=== PATIENT | female | born 1950 | race Caucasian/White ===

== ENCOUNTER 2017-03-16 11:41 | Inpatient (IN) | payer MEDICARE ==
[2017-03-16 12:41] LABS: #Eosinphils 0.1 thou/uL (0.0-0.7); #Lymphocytes 1.5 thou/uL (1.20-3.40); #Monocytes 0.4 thou/uL (0.11-0.59); #Neutrophils 6.5 thou/uL (1.40-6.50); %Basophils 0.2 % (0.0-1.0); %Eosinophils 0.7 % (0.0-10.0); %Lymphocytes 17.9 % (21.0-51.0); %Monocytes 4.7 % (0.0-10.0); Hematocrit 42.9 % (36.0-47.0); Mean Platelet Volume 7.2 fL (7.4-10.4); Red Blood Cell (RBC) Count 4.78 mill/uL (4.20-5.40); White Blood Cell (WBC) Count 8.4 thou/uL (4.8-10.8)
[2017-03-16 12:59] LABS: ALT (SGPT) 39 U/L (8-55); AST (SGOT) 64 U/L (5-34); Alkaline Phosphatase 89 U/L (40-150); Anion Gap 21 mmol/L (10-20); BUN (Urea Nitrogen) 64 mg/dL (9.8-20.1); Bilirubin, Total 1.1 mg/dL (0.2-1.2); Calc. Creatinine Clearance 0 mL/min (70-130); Carbon Dioxide 18 mmol/L (23-31); Chloride 94 mmol/L (98-107); Estimated GFR-MDRD 5; Globulin 4.8 g/dL (2.4-3.5); Protein, Total 9.6 g/dL (6.0-8.3)
[2017-03-16] MEDS ORDERED: Ondansetron HCl/PF 4 MG/2 ML Vial ONE (13:12)
[2017-03-16 13:25] LABS: Bilirubin Small (Negative); Blood, Urine Large (Negative); Glucose, Urine (Dipstick) Negative (Negative); Ketone, Urine Trace mg/dL (Negative); Nitrite Negative (Negative); Protein, Urine (Dipstick) 300 mg/dL (Neg-Trace); Urobilinogen 0.2 mg/dL (0.2-1.0)
[2017-03-16 13:30] LABS: Bacteria/HPF 4+ HPF (None Seen); Hyaline Casts/LPF 0-3 HYALINE CAST LPF (0-3 Hyaline)
[2017-03-16 13:50] LABS: Yeast-All Forms None Seen HPF (None Seen)
--- NOTE | 2017-03-16 16:40 | CT ---
CT ABDOMEN WITHOUT CONTRAST CT PELVIS WITHOUT CONTRAST: History: Abdominal pain. Comparison: None. Technique: An abdomen and pelvic CT are performed without contrast. Coronal reformatted images are steele bmitted for interpretation. FINDINGS: ABDOMEN CT: Lung bases are clear. Heart size is within normal limits. No significant paracardial fluid. The diste nding thoracic aorta demonstrates atherosclerosis. There is atherosclerosis at the origin of the nayla ac artery, superior mesenteric artery, and bilateral renal artery. Evaluation is limited. Symmetric a ttenuation of psoas muscles. No gastrohepatic, retrocrural or periportal lymphadenopathy. Gallbladder is unremarkable. Limited evaluation of the solid organs by lack of IV contrast. Diffuse hypodensity of the liver due t o hepatic steatosis. Remaining solid organs are grossly unremarkable. There is mild lobulation involv ing both kidneys, nonspecific. There are punctate nonobstructing 1-2 mm calculus in the lower pole of the left kidney. Bilateral hydronephrosis or perinephric fat stranding. Bilateral ureters are normal caliber. No hydroureter, perirenal fat stranding or ureterolithiasis. No gastrohepatic, retrocrual or periportal lymphadenopathy. No mesenteric mass, lymphadenopathy, free air or free fluid. There is oral contrast opacification of the small bowel loops. There is a segment of small bowel, jus t proximal to the ostomy site which is slightly thickened and dilated. Findings are nonspecific and m ay be secondary to the presence of a dilated ileostomy. The entire colon appears to be surgically rem maria eugenia. With regard to the small bowel loops, no evidence of bowel obstruction. PELVIC CT: The uterus and adnexa structures are unremarkable. No pelvic mass, lymphadenopathy, free air or free fluid. Urinary bladder is unremarkable. There are no lytic or blastic lesions. There is a predominately fat containing lesion in the anterior aspect of the left lower extremity com patible with a lipoma measuring 3.8 x 5.9 cm. Better interrogation with MRI is recommended. IMPRESSION: 1. Diverting ileostomy in the right lower quadrant. The entire colon appears to be surgically absent. No evidence of bowel obstruction. 2. Nonobstructing calculus in the left kidney. Bilaterally, no evidence of obstructive uropathy. 3. Hepatic steatosis. POS: [facility]
[2017-03-16] MEDS ORDERED: Diabetic Tussin 200 MG/10 ML UDCUP PO PRN (16:56)
[2017-03-16] MEDS ORDERED: Artificial Tears 18 DROP/0.9 ML EA EYE PRN (16:56)
[2017-03-16] MEDS ORDERED: Sodium Chloride 0.65% Nasal 44 ML BOT EA NARE PRN (16:56)
[2017-03-16] MEDS ORDERED: Ondansetron ODT 4 MG TAB PO PRN (16:56)
[2017-03-16] MEDS ORDERED: Ondansetron HCl/PF 4 MG/2 ML Vial IVP PRN (16:56)
[2017-03-16] MEDS ORDERED: Milk Of Magnesia 30 ML UDCUP PO PRN (16:56)
[2017-03-16] MEDS ORDERED: hydrALAZINE 20 MG/ML VIAL SLOW IVP PRN (16:56)
[2017-03-16] MEDS ORDERED: Chloraseptic Spray 180 ml Bottle PO PRN (16:56)
[2017-03-16] MEDS ORDERED: Acetaminophen 325 MG TAB PO PRN (16:56)
[2017-03-16] MEDS ORDERED: Morphine 4 MG/ML VIAL SLOW IVP PRN (16:56)
[2017-03-16] MEDS ORDERED: Senokot 8.6 MG TAB PO PRN (16:56)
[2017-03-16] MEDS ORDERED: Labetalol HCl 100 MG/20 ML VIAL SLOW IVP PRN (16:56)
[2017-03-16] MEDS ORDERED: Loratadine 10 MG TAB PO PRN (16:56)
[2017-03-16] MEDS ORDERED: HYDROcodone/Acetaminophen 5/325 mg Tablet PO PRN (16:56)
[2017-03-16] MEDS ORDERED: Eucerin (Mineral Oil/Petrolatum,White) 30 gm Jar TOP PRN (16:56)
[2017-03-16] MEDS ORDERED: Mag-Al 1200 mg/1200 mg/30 ML UDCUP PO PRN (16:56)
[2017-03-16] MEDS ORDERED: Loperamide HCl 2 MG CAP PO PRN (16:56)
[2017-03-16] MEDS ORDERED: Diphenoxylate HCl/Atropine Tablet PO PRN (16:56)
--- NOTE | 2017-03-16 17:48 | HP ---
PRIMARY CARE PHYSICIAN: Rhea Pérez MD PRIMARY YARN WASHER: Dr. Bridgett Mo. REASON FOR ADMISSION: Acute kidney failure. HISTORY OF PRESENT ILLNESS: A 67-year-old female, who has history of inflammatory bowel disease, req uired colectomy and she has ileostomy. The patient came to the emergency room from Dr. Mo's offic e. The patient has a 1 week history of abdominal pain, nausea, vomiting. The patient also noticed t hat her ostomy output was also reduced significantly. because she was not able to keep anything down . She initially thought that she might have a small-bowel obstruction, which she had in the past. S he was trying to rub her abdomen and after that she felt better only for 1 day and that is why she ig nored to come to emergency room, but again the next day, the patient started having nausea and vomiti ng and she was only able to eat crackers. She was also not drinking enough liquid. The patient was also having vague abdominal pain and that is why she made appointment with Dr. Bridgett Mo and who evaluated her and she sent her to the emergency room for evaluation. This patient reports that she had similar type of acute kidney failure in the past from high ileostom y output. She denies any fever. She denies any UTI symptoms, though urinalysis in the emergency dave m suggestive of UTI. In the emergency room, the patient is found with acute kidney failure with her BUN is 64 and creatinine 7.57. The patient also had urinalysis, which was suggestive of UTI. She di d not have any chest pain, palpitation, dizziness. She was feeling weak, fatigued, tired. She denie s any hematochezia. She denies any melena. She denies any hematemesis. REVIEW OF SYSTEMS: The following complete review of systems was negative, unless otherwise mentioned in the HPI or below: CONSTITUTIONAL: Weight loss or gain, ability to conduct usual activities. SKIN: Rash, itching. EYES: Double vision, pain. ENT/MOUTH: Nose bleeding, neck stiffness, pain, tenderness. CARDIOVASCULAR: Palpitations, dyspnea on exertion, orthopnea. RESPIRATORY: Shortness of breath, wheezing, cough, hemoptysis, fever or night sweats. GASTROINTESTINAL: Poor appetite, abdominal pain, heartburn, nausea, vomiting, constipation, or diarr hea. GENITOURINARY: Urgency, frequency, dysuria, nocturia. MUSCULOSKELETAL: Pain, swelling. NEUROLOGIC/PSYCHIATRIC: Anxiety, depression. ALLERGY/IMMUNOLOGIC: Skin rash, bleeding tendency. Please see my HPI for pertinent positives and negatives. All other review of system reviewed and neg ative except as mentioned in the HPI. PAST MEDICAL HISTORY: Nephrolithiasis, inflammatory bowel disease, and history of pancreatitis. PAST SURGICAL HISTORY: Colectomy, ileostomy placement, left elbow surgery, lithotripsy for kidney st one, surgery on esophagus, tonsillectomy, and tubal ligation. PAST PSYCHIATRIC HISTORY: Anxiety and depression. SOCIAL HISTORY: The patient is living at home with family. She is a former smoker. She quit Zentila more than 10 years ago. She denies any alcohol or other illicit drug abuse. FAMILY HISTORY: No strong family history of premature coronary artery disease, stroke or cancer. ALLERGIES: SULFA DRUGS. CURRENT HOME MEDICATIONS: Calcium with vitamin D 1 tablet twice daily, potassium chloride one tablet daily, magnesium oxide 400 mg twice daily, losartan 25 mg p.o. daily, glipizide 5 mg p.o. daily, Zol oft 100 mg p.o. daily, omeprazole 20 mg p.o. daily, and metoprolol 50 mg twice daily. EMERGENCY ROOM COURSE: The patient is receiving IV fluid. The patient is given Rocephin 1 gram and Zofran 8 mg. PHYSICAL EXAMINATION: VITAL SIGNS: On arrival, blood pressure 141/67, pulse 77, respiratory rate 20, temperature 97.7, sat uration 95% on room air, and weight 93.8 kilograms. GENERAL: The patient is currently alert, awake, appears weak and dry. HEENT: Head: Normocephalic, atraumatic. Eyes: Pupils round, reactive to light. Extraocular muscl es intact. ENT: Oropharynx within normal limits. Dry mucous membranes, no oral lesions, no pharyngeal erythema , no exudate. NECK: Supple, no JVD, no thyromegaly, no carotid bruit. LUNGS: Clear to auscultation without any rhonchi or rales. CARDIAC: S1 and S2 regular. No murmur, no gallop, no rub. ABDOMEN: The patient has ileostomy in place, which is draining greenish liquidy material. The patie nt does have diffuse vague abdominal soreness, but no peritoneal sign, no guarding, no rigidity. No distention. Bowel sounds present. BACK: Unremarkable, no CVA tenderness. EXTREMITIES: Upper extremity passive movement of all joints are normal. Lower extremities: No abdirashid a. Good peripheral pulsation. SKIN: No skin rash. HEMATOLOGICAL: No lymphadenopathy. PSYCHIATRIC: Normal affect. SIGNIFICANT LABS: EKG based on my review reveals normal sinus rhythm within normal limits. CT of th e abdomen and pelvis done and reviewed by me, official report is pending. CBC: WBC 8.4, hemoglobin 14.9, platelet 310. BMP: Sodium 128, potassium 4.8, chloride 94, carbon d ioxide 18, anion gap 21, BUN 64, creatinine 7.57, glucose 148, calcium 10.0. LFT: AST 64, ALT 39, a lkaline phosphatase 89, albumin 4.8. CRP 4.84, lipase 123. Urinalysis suggestive of UTI. IMPRESSION 1. Acute kidney failure. The patient's creatinine is significantly elevated from BUN 64 and creatin ine 7.57. The patient is clinically appeared dehydrated. Her kidney failure is related with prerena l etiology secondary to poor p.o. intake as well as high ileostomy output. At this point, the patien t also has associated anion gap metabolic acidosis. The patient will require admission to the hospit al. She will be given IV fluid with NS with 1 ampule of sodium bicarbonate at 150 mL per hour. We w ill monitor renal function. We will consult Nephrology. We will check urine sodium, urine creatinin e, urine osmolality, and plasma osmolality. We will avoid nephrotoxic agents. We will monitor input output chart. 2. Hyponatremia and hypochloremia, likely due to volume depletion. The patient will be given IV flu id with NS and we will repeat BMP tomorrow. We are also going hyponatremia workup. 3. Anion gap metabolic acidosis due to renal failure. We are giving her sodium bicarbonate 650 mg p .o. b.i.d. along with 1 ampule of sodium bicarbonate, 1 with IV fluid and we will consult Nephrology for further treatment. Plan will defer to Nephrology as well. 3. Acute urinary tract infection. The patient will be given IV fluid as well as antibiotic therapy will be given with Rocephin and Levaquin 250 mg daily. We will follow up on urine culture. We will send urine culture as well. 4. Inflammatory bowel disease, we will consult sample coordinator. The patient has high ileostomy o utput. We will defer further treatment of inflammatory bowel disease to sample coordinator. 5. Diabetes type 2. We will continue with insulin as per sliding scale per protocol. Diabetic diet will be given as tolerated. At this point, we are starting with clear liquid diet and if patient to lerates this well, then we will advance diet to fiber restricted diet. 6. Hypertension. Currently, blood pressure is reasonably well controlled. We will avoid losartan, given renal failure. We will continue with metoprolol 50 mg twice daily. 7. Gastroesophageal reflux disease. We will continue Protonix 40 mg IV daily. 8. Anxiety and depression. We will continue Zoloft 100 mg p.o. daily. 9. Fluid, electrolytes, nutrition. The patient will have magnesium, phosphorus checked and her meta bolic acidosis will be contacted and will replace electrolytes as needed basis. 10. Deep venous thrombosis prophylaxis, heparin 5000 units subcu twice daily. 11. Gastrointestinal prophylaxis, Protonix 40 mg IV daily. 12. Code status: The patient is FULL CODE. The patient's daughter is surrogate decision maker. 13. Disposition plan based on clinical course. We are expecting the patient's stay in the hospital more than 2 midnights. Plan of care discussed with the patient and family member at bedside in the e mergency room.
[2017-03-16 21:29] VITALS: BMI 32.8
[2017-03-16] MEDS: Sodium Bicarbonate 50 MEQ in Sodium Chloride 0.9% 1,000 ML IV SCH (21:47)
[2017-03-16] MEDS: Sodium Bicarbonate Tab 325 MG TAB PO SCH (21:48)
[2017-03-16] MEDS: Heparin 5,000 UNITS/ML VIAL SC SCH (21:48)
[2017-03-16 22:24] LABS: Osmolality, Urine 349 mOsm/kg (300-900)
[2017-03-17 01:09] LABS: Sodium, Urine Less than 20 mmol/L (Not Available)
[2017-03-17 05:30] LABS: #Basophils 0.1 thou/uL (0.0-0.2); #Eosinphils 0.1 thou/uL (0.0-0.7); #Lymphocytes 1.2 thou/uL (1.20-3.40); #Monocytes 0.4 thou/uL (0.11-0.59); #Neutrophils 4.1 thou/uL (1.40-6.50); %Basophils 0.9 % (0.0-1.0); %Lymphocytes 21.1 % (21.0-51.0); %Monocytes 7.3 % (0.0-10.0); Hematocrit 37.7 % (36.0-47.0); Mean Platelet Volume 7.7 fL (7.4-10.4); Red Blood Cell (RBC) Count 4.06 mill/uL (4.20-5.40); White Blood Cell (WBC) Count 5.8 thou/uL (4.8-10.8)
[2017-03-17 06:12] LABS: ALT (SGPT) 32 U/L (8-55); AST (SGOT) 53 U/L (5-34); Alkaline Phosphatase 70 U/L (40-150); Anion Gap 18 mmol/L (10-20); BUN (Urea Nitrogen) 59 mg/dL (9.8-20.1); Bilirubin, Total 0.8 mg/dL (0.2-1.2); Calc. Creatinine Clearance 16 mL/min (70-130); Calcium 8.5 mg/dL (7.8-10.44); Carbon Dioxide 13 mmol/L (23-31); Chloride 101 mmol/L (98-107); Estimated GFR-MDRD 9; Globulin 3.9 g/dL (2.4-3.5); Lipase 189 U/L (8-78); Magnesium 1.7 mg/dL (1.6-2.6); Phosphorus 5.7 mg/dL (2.3-4.7); Protein, Total 7.7 g/dL (6.0-8.3)
[2017-03-17] MEDS: Sodium Bicarbonate 50 MEQ in Sodium Chloride 0.9% 1,000 ML IV SCH ×3 (06:53→22:39)
[2017-03-17] MEDS ORDERED: FLU VACC TS2017-18 (>65YR) 0.5 ML SYRINGE IM ONE (09:00)
[2017-03-17] MEDS: Heparin 5,000 UNITS/ML VIAL SC SCH ×2 (09:00→20:17)
[2017-03-17] MEDS ORDERED: Meropenem 500 MG in Sodium Chloride 0.9% 100 ML IVPB SCH (09:00)
[2017-03-17] MEDS: Pantoprazole 40 MG VIAL IVP SCH (09:01)
[2017-03-17] MEDS: Saccharomyces boulardii 250 MG CAP PO SCH (09:01)
[2017-03-17] MEDS: Sodium Bicarbonate Tab 325 MG TAB PO SCH ×2 (09:01→20:17)
[2017-03-17] MEDS ORDERED: Sodium Bicarbonate 150 MEQ, Admixture Fee 1 EACH in Dextrose 5% in Water 1,000 ML IV SCH ×3 (09:15)
--- NOTE | 2017-03-17 09:16 | PDOC.PN ---
- Subjective Encounter Start Date: 03/17/17 Encounter Start Time: 07:40 -: old records requested/rev Patient seen and examined. No new complaints. No overnight events - Objective MAR Reviewed: Yes Vital Signs & Weight: Vital Signs (12 hours) Temp Pulse Resp BP Pulse Ox 03/17/17 07:41 97.6 F 70 16 119/57 L 95 03/17/17 04:00 98.5 F 75 18 122/57 L 96 03/17/17 03:40 94 L Weight Weight 209 lb 8 oz I&O: 03/16/17 03/17/17 03/18/17 06:59 06:59 06:59 Intake Total 1350 Output Total 300 Balance 1050 Result Diagrams: 03/17/17 05:10 03/17/17 05:10 Radiology Reviewed by me: Yes EKG Reviewed by me: Yes (nsr) Phys Exam - Physical Examination Constitutional: NAD HEENT: PERRLA, moist MMs, sclera anicteric Neck: no JVD, supple Respiratory: no wheezing, no rales, no rhonchi Cardiovascular: RRR, no significant murmur, no rub Gastrointestinal: soft, non-tender, no distention, positive bowel sounds Iliostomy+ Musculoskeletal: no edema, pulses present Neurological: non-focal, normal sensation Lymphatic: no nodes Psychiatric: normal affect, A&O x 3 Skin: no rash, normal turgor Dx/Plan (1) Metabolic acidosis Code(s): E87.2 - ACIDOSIS Status: Acute (2) Acute kidney failure Status: Acute (3) Hyponatremia Code(s): E87.1 - HYPO-OSMOLALITY AND HYPONATREMIA Status: Acute (4) UTI (urinary tract infection) Status: Acute (5) IBD (inflammatory bowel disease) Code(s): K52.9 - NONINFECTIVE GASTROENTERITIS AND COLITIS, UNSPECIFIED Status : Chronic (6) Obesity (BMI 30.0-34.9) Code(s): E66.9 - OBESITY, UNSPECIFIED Status: Chronic - Plan cont current plan of care, continue antibiotics * start bicarbonate drip for 1 liter * then resume current IVF order * medication reviewed as below * symptomatic treatment * monitor renal function * stool negative for infection * continue today empiric antibiotics. * Give KCL 40 meq po one time * repeat labs tomorrow * discussed with nephrology Review of Systems - Review of Systems ENT: negative: Ear Pain, Ear Discharge, Nose Pain, Nose Discharge, Nose Congestion, Mouth Pain, Mouth Swelling, Throat Pain, Throat Swelling, Other Respiratory: negative: Cough, Dry, Shortness of Breath, Hemoptysis, SOB with Excertion, Pleuritic Pain, Sputum, Wheezing Cardiovascular: negative: Chest Pain, Palpitations, Orthopnea, Paroxysmal Noc. Dyspnea, Edema, Light Headedness, Other Gastrointestinal: negative: Nausea, Vomiting, Abdominal Pain, Diarrhea, Constipation, Melena, Hematochezia, Other Genitourinary: negative: Dysuria, Frequency, Incontinence, Hematuria, Retention , Other Musculoskeletal: negative: Neck Pain, Shoulder Pain, Arm Pain, Back Pain, Hand Pain, Leg Pain, Foot Pain, Other Skin: negative: Rash, Lesions, Stef, Bruising, Other - Medications/Allergies Allergies/Adverse Reactions: Allergies Allergy/AdvReac Type Severity Reaction Status Date / Time Sulfa (Sulfonamide Allergy Verified 03/16/17 22:13 Antibiotics) Medications: Current Medications Acetaminophen (Tylenol) 650 mg PO Q4H PRN PRN Reason: Headache/Fever or Pain Hydrocodone Bitart/Acetaminophen ([place] 5/325) 1 tab PO Q4H PRN PRN Reason: Moderate Pain (4-6) Al Hydroxide/Mg Hydroxide (Maalox) 30 ml PO Q6H PRN PRN Reason: Heartburn or Indigestion Artificial Tears (Tears Naturale) 0 drop EA EYE PRN PRN PRN Reason: Dry Eyes Diphenoxylate HCl/Atropine (Lomotil) 1 tab PO Q6H PRN PRN Reason: Diarrhea/Loose Stools Guaifenesin (Robitussin Sf) 200 mg PO Q4H PRN PRN Reason: Cough Heparin Sodium (Porcine) (Heparin) 5,000 units SC BID REPLACED BY [facility] Last Admin: 03/17/17 09:00 Dose: 5,000 units Hydralazine HCl (Apresoline) 10 mg SLOW IVP Q4H PRN PRN Reason: Systolic BP > 180 Ceftriaxone Sodium 1 gm/ (Syringe) 10 mls @ 20 mls/hr IVPB 1600 NELIA Sodium Bicarbonate 50 meq/ (Sodium Chloride) 1,050 mls @ 150 mls/hr IV .Q7H REPLACED BY [facility] Last Admin: 03/17/17 06:53 Dose: 1,050 mls Levofloxacin 250 mg/ Device 50 mls @ 100 mls/hr IVPB 2200 REPLACED BY [facility] Last Admin: 03/16/17 21:49 Dose: 50 mls Labetalol HCl (Normodyne) 40 mg SLOW IVP Q4H PRN PRN Reason: Systolic BP > 180 Loperamide HCl (Imodium) 2 mg PO PRN PRN PRN Reason: Diarrhea/Loose Stools Loratadine (Claritin) 10 mg PO DAILYPRN PRN PRN Reason: Sinus Symptoms Magnesium Hydroxide (Milk Of Magnesium) 30 ml PO DAILYPRN PRN PRN Reason: Constipation Mineral Oil/White Petrolatum (Eucerin Cream) 0 gm TOP BIDPRN PRN PRN Reason: Dry Skin Morphine Sulfate (Morphine) 2 mg SLOW IVP Q4H PRN PRN Reason: Pain Ondansetron HCl (Zofran Odt) 4 mg PO Q6H PRN PRN Reason: Nausea/Vomiting Ondansetron HCl (Zofran) 4 mg IVP Q6H PRN PRN Reason: Nausea/Vomiting Last Admin: 03/17/17 03:05 Dose: 4 mg Pantoprazole Sodium (Protonix) 40 mg IVP DAILY REPLACED BY [facility] Last Admin: 03/17/17 09:01 Dose: 40 mg Phenol (Chloraseptic [place] 180 Ml Bot) 0 ml PO PRN PRN PRN Reason: Sore Throat Saccharomyces Boulardii (Florastor) 250 mg PO DAILY REPLACED BY [facility] Last Admin: 03/17/17 09:01 Dose: 250 mg Senna (Senokot) 2 tab PO HSPRN PRN PRN Reason: Constipation Sodium Bicarbonate (Bicarbonate, Sodium) 650 mg PO BID REPLACED BY [facility] Last Admin: 03/17/17 09:01 Dose: 650 mg Sodium Chloride ([place] Nasal [place] 0.65%) 0 ml EA NARE QIDPRN PRN PRN Reason: Nasal Congestion Sodium Chloride (Flush - Normal Saline) 10 ml IVF Q12HR REPLACED BY [facility] Last Admin: 03/16/17 21:49 Dose: 10 ml Sodium Chloride (Flush - Normal Saline) 10 ml IVF PRN PRN PRN Reason: Saline Flush
[2017-03-17] MEDS ORDERED: Potassium Chloride 20 MEQ TAB PO SCH (09:30)
[2017-03-17] MEDS: cefTRIAXone\\ROCEPHIN 1 GM in Syringe 10 ML IVPB SCH (16:50)
--- NOTE | 2017-03-17 17:54 | CON ---
DATE OF CONSULTATION: 03/17/2017 HISTORY OF PRESENT ILLNESS: Patient is a 67-year-old female with a history of Crohn's who was referred to the emergency room from Dr. Mo's office because of vomiting. She was last seen by Nette Moran in Dr. Mo's office. At that time, she was having nausea, vomiting, and dry heaves. She had decreased ileostomy output over the last 72 hours. Normally, she changes her ostomy bag 3-4 times a day and uses a Lomotil occasionally for increased ostomy output. She has diffuse abdominal p ain and cramping. She has had a total colectomy for what was thought was ulcerative colitis and a J- pouch. Subsequently, she was diagnosed with Crohn disease and her J-pouch was converted into an ileo stomy. PAST MEDICAL HISTORY: Includes chronic renal disease, diabetes mellitus, hyperlipidemia, depression, hypertension. PAST SURGICAL HISTORY: Includes a total colectomy, kidney stones. ALLERGIES: SULFA. SOCIAL HISTORY: She rarely drinks, does not smoke. FAMILY HISTORY: Significant for colon cancer in both her mother and father. MEDICATIONS: Include Glucotrol 5 mg p.o. daily, sertraline 100 mg p.o. at bedtime, omeprazole 20 mg p.o. daily, metoprolol 25 mg p.o. b.i.d., magnesium oxide 400 mg p.o. b.i.d., losartan 25 mg p.o. jonnie ly, calcium citrate with vitamin D 600 mg p.o. daily, potassium 99 mg p.o. daily. REVIEW OF SYSTEMS: CONSTITUTIONAL: No fever or chills, no weight loss. EYES: No blurred vision or double vision. ENT: No sore throat or earaches. CARDIOVASCULAR: No chest pain or palpitation. PULMONARY: No shortness of breath, cough or wheezing. GASTROINTESTINAL: See above. GENITOURINARY: No hematuria or dysuria. MUSCULOSKELETAL: No joint pain. SKIN: No rashes. NEUROLOGIC: No numbness or seizure activity. PHYSICAL EXAMINATION: VITAL SIGNS: Temperature 98.4, pulse 85, respiratory rate 15, blood pressure 142/80. HEENT: Unremarkable. NECK: Supple. CHEST: Clear. CARDIOVASCULAR: Regular rate and rhythm without murmurs or gallops. ABDOMEN: Soft, nontender, without organomegaly or masses. She has an ileostomy in the right lower q uadrant. Mucosa seems to be normal. RECTAL: Deferred. EXTREMITIES: Normal. LABORATORY: Shows a hemoglobin on admission of 14.9, has dropped to 12.6 with hydration. Chemistry panel on admission shows sodium 128, chloride 94, CO2 of 18, BUN 64, creatinine 7.57, glucose 148, T 64. C-reactive protein 484, total protein 96, lipase 123. Urinalysis showed 300 protein, large bl ood, small bilirubin, moderate leukocyte esterase, 7-10 RBCs, greater than 50 WBCs. Abdominal and pe lvic CT done without contrast showed diverting ileostomy in the right lower quadrant with an absent c olon. No bowel obstruction is noted. Nonobstructing left calculus in the kidney and fatty liver. ASSESSMENT: 1. Severe dehydration secondary to nausea and vomiting. 2. Decreased ostomy output -- this is probably on the basis of dehydration rather than an obstructio n. 3. Acute on chronic renal failure -- secondary to nausea, vomiting, and dehydration. 4. History of Crohn disease with a total colectomy, J-pouch and subsequent ileostomy. 5. Diabetes mellitus. 6. Urinary tract infection. 7. Hyponatremia. RECOMMENDATIONS: 1. Rehydration. 2. Resume diet. 3. Treat underlying urinary tract infection. 5. Correct electrolytes.
[2017-03-17] MEDS ORDERED: Acetaminophen 500 MG TAB PO PRN (22:24)
[2017-03-17] MEDS: diphenhydrAMINE 25 MG CAP PO PRN (22:48)
--- NOTE | 2017-03-18 00:21 | CON ---
DATE OF CONSULTATION: 03/17/2017 CONSULTING PHYSICIAN: Dr. Puga. REASON FOR CONSULTATION: Acute kidney injury. REASON FOR ADMISSION: Abnormal labs. HISTORY OF PRESENT ILLNESS: This is a 67-year-old female with history of inflammatory bowel disease, nephrolithiasis, and pancreatitis who came to the hospital with above complaints and patient was fou nd to have abnormal labs. The patient was found to have elevated creatinine and the patient was havi ng increased output. She does have history of previous acute kidney injuries like this. No fever or chills, no nausea or vomiting, increased ostomy output reported. No skin rash, no fever or chills reported. PAST MEDICAL HISTORY: Positive for nephrolithiasis, inflammatory bowel disease, pancreatitis. PAST SURGICAL HISTORY: Colectomy, ileostomy placement, left elbow surgery, lithotripsy, tonsillectom y, tubal ligation. HOME MEDICATIONS: Calcium, vitamin D, magnesium, losartan, glipizide, Zoloft, omeprazole, metoprolol . ALLERGIES: SULFA DRUGS. SOCIAL HISTORY: No smoking, alcohol, or illicit drug abuse, former smoker. FAMILY HISTORY: Negative for kidney disease. REVIEW OF SYSTEMS: The following complete review of systems was negative, unless otherwise mentioned in the HPI or below: Constitutional: Weight loss or gain, ability to conduct usual activities. Skin: Rash, itching. Eyes: Double vision, pain. ENT/Mouth: Nose bleeding, neck stiffness, pain, tenderness. Cardiovascular: Palpitations, dyspnea on exertion, orthopnea. Respiratory: Shortness of breath, wheezing, cough, hemoptysis, fever, or night sweats. Gastrointestinal: Poor appetite, abdominal pain, heartburn, nausea, vomiting, constipation, or diarr hea. Genitourinary: Urgency, frequency, dysuria, nocturia. Musculoskeletal: Pain, swelling. Neurologic/Psychiatric: Anxiety, depression. Allergy/Immunologic: Skin rash, bleeding tendency. PHYSICAL EXAMINATION: GENERAL: This is an obese female in no apparent distress. VITAL SIGNS: Temperature 98.8, pulse 81, respirations 17, blood pressure 113/58. HEENT: Atraumatic, normocephalic. Oral mucosa is moist. NECK: Supple, no masses. CARDIOVASCULAR: S1, S2 heard. Rate and rhythm regular. RESPIRATORY: Clear to auscultation. MUSCULOSKELETAL: No tenderness. DERMATOLOGIC: No skin rash. NEUROLOGIC: Alert and awake. PSYCHIATRIC: Mood and affect normal. LABORATORY AND X-RAY FINDINGS: Sodium is 128, potassium 3.8, BUN is 59, creatinine is 5.03. Creatin ine on admission was 7.5. ASSESSMENT AND PLAN: 1. Acute kidney injury most likely volume depletion. No acute indication for dialysis. Creatinine is getting better with hydration. 2. Hyponatremia. 3. Acidosis. Consider bicarbonate supplementation. 4. Azotemia. 5. Elevated liver enzymes. 6. Hypoalbuminemia. 7. Hypertension, stable. 8. Anemia. 9. Continue hydration, avoid nephrotoxins. We will follow. Thank you for the consultation.
[2017-03-18] MEDS: Sodium Bicarbonate 50 MEQ in Sodium Chloride 0.9% 1,000 ML IV SCH (04:40)
[2017-03-18 04:57] LABS: #Eosinphils 0.1 thou/uL (0.0-0.7); #Lymphocytes 1.1 thou/uL (1.20-3.40); #Monocytes 0.4 thou/uL (0.11-0.59); #Neutrophils 2.5 thou/uL (1.40-6.50); %Basophils 0.2 % (0.0-1.0); %Eosinophils 2.2 % (0.0-10.0); %Lymphocytes 26.9 % (21.0-51.0); %Monocytes 8.9 % (0.0-10.0); Hematocrit 30.7 % (36.0-47.0); Mean Platelet Volume 7.1 fL (7.4-10.4); Red Blood Cell (RBC) Count 3.39 mill/uL (4.20-5.40)
[2017-03-18 05:21] LABS: Anion Gap 12 mmol/L (10-20); BUN (Urea Nitrogen) 42 mg/dL (9.8-20.1); BUN/Creatinine Ratio 18.18; Calc. Creatinine Clearance 36 mL/min (70-130); Calcium 7.9 mg/dL (7.8-10.44); Carbon Dioxide 27 mmol/L (23-31); Chloride 100 mmol/L (98-107); Estimated GFR-MDRD 21; Phosphorus 3.1 mg/dL (2.3-4.7)
[2017-03-18] MEDS ORDERED: Potassium Chloride 20 MEQ TAB PO SCH (08:30)
[2017-03-18] MEDS: Saccharomyces boulardii 250 MG CAP PO SCH (08:50)
[2017-03-18] MEDS: Heparin 5,000 UNITS/ML VIAL SC SCH ×2 (08:50→20:22)
[2017-03-18] MEDS: Pantoprazole 40 MG VIAL IVP SCH (08:50)
[2017-03-18] MEDS: Sodium Bicarbonate Tab 325 MG TAB PO SCH ×2 (09:55→20:22)
[2017-03-18] MEDS: NS 0.9% w/ 20 MEQ KCL 1,000 ML/1,000 ML BAG IV SCH ×3 (09:56→19:00)
--- NOTE | 2017-03-18 09:57 | PDOC.PN ---
- Subjective Encounter Start Date: 03/18/17 Encounter Start Time: 08:00 pt is continue to improve, feels better, no complaints today, apatite is improving, has solid content in ilieostomy+ - Objective MAR Reviewed: Yes Vital Signs & Weight: Vital Signs (12 hours) Temp Pulse Resp BP Pulse Ox 03/18/17 08:47 97.8 F 82 18 133/61 93 L 03/18/17 04:00 97.3 F L 76 18 141/66 H 95 03/18/17 02:59 93 L Weight Weight 214 lb 9.6 oz I&O: 03/17/17 03/18/17 03/19/17 06:59 06:59 06:59 Intake Total 1350 5200 Output Total 300 3150 Balance 1050 0 Result Diagrams: 03/18/17 04:33 03/18/17 04:33 EKG Reviewed by me: Yes (nsr) Phys Exam - Physical Examination Constitutional: NAD HEENT: PERRLA, moist MMs, sclera anicteric Neck: no JVD, supple Respiratory: no wheezing, no rales, no rhonchi Cardiovascular: RRR, no significant murmur, no rub Gastrointestinal: soft, non-tender, no distention, positive bowel sounds Ileostomy+ Musculoskeletal: no edema, pulses present Neurological: non-focal, normal sensation, moves all 4 limbs Psychiatric: normal affect, A&O x 3 Skin: no rash, normal turgor Dx/Plan (1) Metabolic acidosis Code(s): E87.2 - ACIDOSIS Status: Acute (2) Acute kidney failure Status: Acute (3) Hyponatremia Code(s): E87.1 - HYPO-OSMOLALITY AND HYPONATREMIA Status: Acute (4) UTI (urinary tract infection) Status: Acute (5) IBD (inflammatory bowel disease) Code(s): K52.9 - NONINFECTIVE GASTROENTERITIS AND COLITIS, UNSPECIFIED Status : Chronic (6) Obesity (BMI 30.0-34.9) Code(s): E66.9 - OBESITY, UNSPECIFIED Status: Chronic - Plan cont current plan of care, continue antibiotics * now will DC bicarbonate drip * will change IVF with potassium * renal function is improving * will need one more day IVF * tomorrow will repeat labs * continue empiric IV antibiotics and tomorrow consider changing to po levaquin for UTI * medication reviewed as below * symptomatic treatment * ambulate as tolerated. Review of Systems - Review of Systems Constitutional: negative: Fever, Chills, Sweats, Weakness, Malaise, Other ENT: negative: Ear Pain, Ear Discharge, Nose Pain, Nose Discharge, Nose Congestion, Mouth Pain, Mouth Swelling, Throat Pain, Throat Swelling, Other Respiratory: negative: Cough, Dry, Shortness of Breath, Hemoptysis, SOB with Excertion, Pleuritic Pain, Sputum, Wheezing Cardiovascular: negative: Chest Pain, Palpitations, Orthopnea, Paroxysmal Noc. Dyspnea, Edema, Light Headedness, Other Gastrointestinal: negative: Nausea, Vomiting, Abdominal Pain, Diarrhea, Constipation, Melena, Hematochezia, Other Genitourinary: negative: Dysuria, Frequency, Incontinence, Hematuria, Retention , Other Musculoskeletal: negative: Neck Pain, Shoulder Pain, Arm Pain, Back Pain, Hand Pain, Leg Pain, Foot Pain, Other Skin: negative: Rash, Lesions, Stef, Bruising, Other - Medications/Allergies Allergies/Adverse Reactions: Allergies Allergy/AdvReac Type Severity Reaction Status Date / Time Sulfa (Sulfonamide Allergy Verified 03/16/17 22:13 Antibiotics) Medications: Current Medications Acetaminophen (Tylenol) 650 mg PO Q4H PRN PRN Reason: Headache/Fever or Pain Acetaminophen (Tylenol) 500 mg PO HSPRN PRN PRN Reason: Insomnia Last Admin: 03/17/17 22:48 Dose: 500 mg Hydrocodone Bitart/Acetaminophen ([place]rawley 5/325) 1 tab PO Q4H PRN PRN Reason: Moderate Pain (4-6) Al Hydroxide/Mg Hydroxide (Maalox) 30 ml PO Q6H PRN PRN Reason: Heartburn or Indigestion Artificial Tears (Tears Naturale) 0 drop EA EYE PRN PRN PRN Reason: Dry Eyes Diphenhydramine HCl (Benadryl) 25 mg PO HSPRN PRN PRN Reason: Insomnia Last Admin: 03/17/17 22:48 Dose: 25 mg Diphenoxylate HCl/Atropine (Lomotil) 1 tab PO Q6H PRN PRN Reason: Diarrhea/Loose Stools Guaifenesin (Robitussin Sf) 200 mg PO Q4H PRN PRN Reason: Cough Heparin Sodium (Porcine) (Heparin) 5,000 units SC BID [facility] Last Admin: 12/02/17 08:50 Dose: 5,000 units Hydralazine HCl (Apresoline) 10 mg SLOW IVP Q4H PRN PRN Reason: Systolic BP > 180 Ceftriaxone Sodium 1 gm/ (Syringe) 10 mls @ 20 mls/hr IVPB 1600 [facility] Last Admin: 03/17/17 16:50 Dose: 10 mls Levofloxacin 250 mg/ Device 50 mls @ 100 mls/hr IVPB 2200 [facility] Last Admin: 03/17/17 22:41 Dose: 50 mls Potassium Chloride/Sodium Chloride (Ns 0.9% W/ 20 Meq Kcl) 1,000 ml in 1,000 mls @ 125 mls/hr IV .Q8H [facility] Last Admin: 03/18/17 09:56 Dose: 1,000 mls Labetalol HCl (Normodyne) 40 mg SLOW IVP Q4H PRN PRN Reason: Systolic BP > 180 Loperamide HCl (Imodium) 2 mg PO PRN PRN PRN Reason: Diarrhea/Loose Stools Loratadine (Claritin) 10 mg PO DAILYPRN PRN PRN Reason: Sinus Symptoms Magnesium Hydroxide (Milk Of Magnesium) 30 ml PO DAILYPRN PRN PRN Reason: Constipation Mineral Oil/White Petrolatum (Eucerin Cream) 0 gm TOP BIDPRN PRN PRN Reason: Dry Skin Morphine Sulfate (Morphine) 2 mg SLOW IVP Q4H PRN PRN Reason: Pain Ondansetron HCl (Zofran Odt) 4 mg PO Q6H PRN PRN Reason: Nausea/Vomiting Ondansetron HCl (Zofran) 4 mg IVP Q6H PRN PRN Reason: Nausea/Vomiting Last Admin: 03/17/17 03:05 Dose: 4 mg Pantoprazole Sodium (Protonix) 40 mg IVP DAILY [facility] Last Admin: 03/18/17 08:50 Dose: 40 mg Phenol (Chloraseptic [place] 180 Ml Bot) 0 ml PO PRN PRN PRN Reason: Sore Throat Potassium Chloride (K-Dur) 40 meq PO 0830 [facility] Stop: 03/18/17 11:30 Last Admin: 03/18/17 08:50 Dose: 40 meq Saccharomyces Boulardii (Florastor) 250 mg PO DAILY [facility] Last Admin: 03/18/17 08:50 Dose: 250 mg Senna (Senokot) 2 tab PO HSPRN PRN PRN Reason: Constipation Sodium Bicarbonate (Bicarbonate, Sodium) 650 mg PO BID [facility] Last Admin: 03/18/17 09:55 Dose: 650 mg Sodium Chloride ([place] Nasal [place] 0.65%) 0 ml EA NARE QIDPRN PRN PRN Reason: Nasal Congestion Sodium Chloride (Flush - Normal Saline) 10 ml IVF Q12HR [facility] Last Admin: 03/18/17 08:50 Dose: 10 ml Sodium Chloride (Flush - Normal Saline) 10 ml IVF PRN PRN PRN Reason: Saline Flush
--- NOTE | 2017-03-18 13:11 | PRG ---
DATE OF SERVICE: 03/18/2017 SUBJECTIVE: Patient was seen and examined at bedside and overnight events noted. Patient denies any shortness of breath or chest pain or palpitation. No history of nausea or vomiting or diarrhea or f ever or chills or cramps. OBJECTIVE: GENERAL: This is a well-built female in no apparent distress. VITAL SIGNS: Temperature 99.1, pulse 87, respiratory rate 18, blood pressure 137/65. HEENT: Atraumatic, normocephalic. Oral mucosa is moist. NECK: Supple CARDIOVASCULAR: S1, S2 heard. Rate and rhythm regular. RESPIRATORY: Clear to auscultation. GASTROINTESTINAL: Abdomen is soft. MUSCULOSKELETAL: No tenderness, no edema. DERMATOLOGIC: No skin rash. NEUROLOGIC: Alert and awake and oriented x3. No focal neurologic deficits. Moving all the extremit ies. PSYCHIATRIC: Mood and affect normal LABORATORY DATA: Potassium is 3.1, BUN is 42, and creatinine is 2.3. ASSESSMENT AND PLAN: 1. Acute kidney injury secondary to volume depletion. Renal function is much better. 2. Hyperkalemia, replace. 3. Hyponatremia. 4. Azotemia. 5. Hypertension. 6. Anemia. 7. Renal function is much better. Continue on hydration for 1 more day. Avoid nephrotoxins.
--- NOTE | 2017-03-18 13:59 | PRG ---
DATE OF SERVICE: 03/18/2017 SUBJECTIVE: The patient is feeling much better. She is eating well and tolerating regular diet. OBJECTIVE: VITAL SIGNS: Temperature is 99.1, pulse 87, respiratory rate 18, blood pressure 137/65. CHEST: Clear. CARDIOVASCULAR: Regular rate and rhythm. ABDOMEN: Benign. Ostomy appears normal. LABORATORY DATA: Potassium is 3.1, BUN 42, creatinine 2.31, glucose 134. White blood cell count 4.0 , hemoglobin 10.7, hematocrit 30.7. ASSESSMENT: 1. Severe dehydration secondary to nausea and vomiting -- resolved. 2. Decreased ostomy output -- resolved. 3. Acute on chronic renal failure. 4. History of Crohn's disease. RECOMMENDATIONS: 1. Continue rehydration. 2. Have the patient follow up with Dr. Mo as outpatient. 3. Correct hypokalemia. 4. We will sign off.
[2017-03-18] MEDS: cefTRIAXone\\ROCEPHIN 1 GM in Syringe 10 ML IVPB SCH (16:24)
[2017-03-18] MEDS: diphenhydrAMINE 25 MG CAP PO PRN (20:22)
[2017-03-18] MEDS ORDERED: Metoprolol Tartrate 25 MG TAB PO SCH (21:00)
[2017-03-19] MEDS: NS 0.9% w/ 20 MEQ KCL 1,000 ML/1,000 ML BAG IV SCH ×2 (01:55→03:16)
[2017-03-19 05:18] LABS: #Eosinphils 0.1 thou/uL (0.0-0.7); #Monocytes 0.2 thou/uL (0.11-0.59); #Neutrophils 1.9 thou/uL (1.40-6.50); %Basophils 0.8 % (0.0-1.0); %Eosinophils 3.1 % (0.0-10.0); %Lymphocytes 30.2 % (21.0-51.0); %Monocytes 7.1 % (0.0-10.0); Hematocrit 30.5 % (36.0-47.0); Mean Platelet Volume 6.8 fL (7.4-10.4); Red Blood Cell (RBC) Count 3.29 mill/uL (4.20-5.40); White Blood Cell (WBC) Count 3.2 thou/uL (4.8-10.8)
[2017-03-19 05:31] LABS: Anion Gap 11 mmol/L (10-20); BUN (Urea Nitrogen) 22 mg/dL (9.8-20.1); BUN/Creatinine Ratio 15.71; Calc. Creatinine Clearance 61 mL/min (70-130); Calcium 7.9 mg/dL (7.8-10.44); Carbon Dioxide 27 mmol/L (23-31); Chloride 105 mmol/L (98-107); Estimated GFR-MDRD 38; Phosphorus 2.3 mg/dL (2.3-4.7)
[2017-03-19] MEDS: Pantoprazole 40 MG VIAL IVP SCH (09:11)
[2017-03-19] MEDS: Saccharomyces boulardii 250 MG CAP PO SCH (09:11)
[2017-03-19] MEDS: Sodium Bicarbonate Tab 325 MG TAB PO SCH (09:11)
[2017-03-19] MEDS: Heparin 5,000 UNITS/ML VIAL SC SCH (09:11)
[2017-03-19 11:37] VITALS: TEMP 98.2
[2017-03-19 11:39] VITALS: BP 163/77
--- NOTE | 2017-03-19 12:02 | PDOC.PN ---
- Subjective Encounter Start Date: 03/19/17 Encounter Start Time: 12:14 Subjective: i feel great, ready to go home. - Objective Vital Signs & Weight: Vital Signs (12 hours) Temp Pulse Resp BP Pulse Ox 03/19/17 11:35 98.2 F 71 20 163/77 H 94 L 03/19/17 08:00 97.7 F 70 17 164/79 H 93 L 03/19/17 04:00 97.8 F 69 18 159/79 H 97 03/19/17 00:00 97.6 F 72 16 139/65 94 L Weight Weight 218 lb 4.8 oz I&O: 03/18/17 03/19/17 03/20/17 06:59 06:59 06:59 Intake Total 5200 5067 Output Total 3150 3590 Balance 2049 1477 Result Diagrams: 03/19/17 04:44 03/19/17 04:44 Phys Exam - Physical Examination Constitutional: NAD HEENT: PERRLA, moist MMs, sclera anicteric Neck: no nodes, full ROM Respiratory: no wheezing, clear to auscultation bilateral Cardiovascular: RRR, no significant murmur Gastrointestinal: soft, non-tender ileostomy Musculoskeletal: no edema Neurological: non-focal, moves all 4 limbs Psychiatric: normal affect, A&O x 3 Dx/Plan (1) Acute kidney failure Status: Acute (2) Hypokalemia Code(s): E87.6 - HYPOKALEMIA Status: Acute (3) Hyponatremia Code(s): E87.1 - HYPO-OSMOLALITY AND HYPONATREMIA Status: Acute (4) Ileostomy status Code(s): Z93.2 - ILEOSTOMY STATUS Status: Acute (5) Metabolic acidosis Code(s): E87.2 - ACIDOSIS Status: Acute (6) UTI (urinary tract infection) Status: Acute (7) IBD (inflammatory bowel disease) Code(s): K52.9 - NONINFECTIVE GASTROENTERITIS AND COLITIS, UNSPECIFIED Status : Chronic - Plan home today. * .
--- NOTE | 2017-03-19 12:39 | DIS ---
DATE OF ADMISSION: 03/16/2017 DATE OF DISCHARGE: 03/19/2017 PRIMARY DISCHARGE DIAGNOSES: 1. Gastroenteritis. 2. Irritable bowel disease. 3. Urinary tract infection. 4. Metabolic acidosis as well as acute kidney injury. HOSPITAL COURSE: The patient presented with multiple GI complaints including decreased output in her ileostomy bag. She was also noted to have urinalysis with 4+ bacteria with moderate leukocyte eric ase. The patient was seen and assessed by the Gastroenterology Service, which recommended hydration, electrolyte repletion and outpatient followup. The patient received IV Levaquin and responded well to the antimicrobial therapy. She was deemed stable for discharge with her staff toxicologist on an outpatient basis. CONSULTATIONS: Dr. Fritz, Gastroenterology and Dr. Rollins for Nephrology. DISPOSITION: To home. DISCHARGE DIET: Heart healthy. PHYSICAL EXAMINATION: HEAD: Normocephalic, atraumatic. HEART: Regular rate and rhythm. No murmurs or gallop. LUNGS: Clear to auscultation. ABDOMEN: Nontender and nondistended. Ileostomy clean, dry, and intact, functioning properly. EXTREMITIES: No clubbing, cyanosis or edema. FOLLOWUP: The patient is to follow up with Dr. Holland on Monday for Gastroenterology assessment.
--- NOTE | 2017-03-19 13:07 | PRG ---
DATE OF SERVICE: 03/19/2017 SUBJECTIVE: Patient was seen and examined at bedside and overnight events noted. Patient denies any shortness of breath or chest pain or palpitation. No history of nausea or vomiting or diarrhea or f ever or chills or cramps. OBJECTIVE: GENERAL: This is a well-built female in no apparent distress. VITAL SIGNS: Temperature 98.2, pulse 71, respiratory rate 22, blood pressure 163/77. HEENT: Atraumatic, normocephalic. Oral mucosa is moist. NECK: Supple. CARDIOVASCULAR: S1, S2 heard. Rate and rhythm regular. RESPIRATORY: Clear to auscultation GASTROINTESTINAL: Abdomen is soft MUSCULOSKELETAL : No tenderness, No edema DERMATOLOGIC : No skin rash NEUROLOGIC: Alert and awake and oriented X3, No focal neurologic deficits. Moving all the extremities . PSYCHIATRIC: Mood and affect normal. LABORATORY DATA: Potassium is 4.1, BUN is 22, creatinine is 1.4. ASSESSMENT AND PLAN: 1. Acute kidney injury on chronic kidney disease. Recently volume depletion, much better. 2. Hypokalemia, replace and monitor. 3. Hyponatremia, better. 4. Hypertension. 5. Anemia. 6. Azotemia. Renal function is much better. Advised to follow up in clinic in 1 week. Okay to dis charge.
--- NOTE | 2017-04-18 11:39 | EKG ---
Test Reason : ABD PAIN Blood Pressure : / mmHG Vent. Rate : 074 BPM Atrial Rate : 074 BPM P-R Int : 182 ms QRS Dur : 090 ms QT Int : 410 ms P-R-T Axes : 063 022 052 degrees QTc Int : 455 ms Normal sinus rhythm Cannot rule out Anterior infarct , age undetermined Abnormal ECG Confirmed by RUSTAM PATINO, SAPPHIRE Lezama ([id number]), editorial specialist SYED THAPA ([id number]) on 04/18/2017 11:38:49 AM Referred By: DR EASTON Confirmed By:SAPPHIRE EASTON MD
== END 2017-03-19 12:59 | disposition home or self-care (01) | DRG 683 ==
LOC: ERS 11:41 → 2NO 16:56
PROVIDERS: ADMIT Internal Medicine; ATTEND Internal Medicine
DX: N17.9 Acute kidney failure, unspecified (principal); E87.1 Hypo-osmolality and hyponatremia; E87.2 Acidosis; E87.8 Other disorders of electrolyte and fluid balance, not elsewhere classified; E11.22 Type 2 diabetes mellitus with diabetic chronic kidney disease; K52.9 Noninfective gastroenteritis and colitis, unspecified; N39.0 Urinary tract infection, site not specified; E86.0 Dehydration; Z93.2 Ileostomy status; Z90.49 Acquired absence of other specified parts of digestive tract; Z87.891 Personal history of nicotine dependence; K21.9 Gastro-esophageal reflux disease without esophagitis; F41.9 Anxiety disorder, unspecified; F32.9 Major depressive disorder, single episode, unspecified; I12.9 Hypertensive chronic kidney disease with stage 1 through stage 4 chronic kidney disease, or unspecified chronic kidney disease; N18.9 Chronic kidney disease, unspecified; E66.9 Obesity, unspecified; Z68.32 Body mass index [BMI] 32.0-32.9, adult; D64.9 Anemia, unspecified; E88.09 Other disorders of plasma-protein metabolism, not elsewhere classified
CPT/HCPCS: 36415; 74176; 80053; 80069; 81003; 81015; 82570; 83605; 83690; 83735; 83930; 83935; 84100; 84300; 85025; 86140; 87015; 87045; 87046; 87324; 87328; 87329; 87449; 87899; 93005; 96361; 96374; 96375; A4216; C9113; J0696; J1644; J1956; J2405; J7050; J7070

== ENCOUNTER 2020-12-21 14:56 | Inpatient (IN) | payer MEDICARE ==
[2020-12-21] MEDS ORDERED: HYDROcodone/Acetaminophen 5/325 mg Tablet PO PRN (21:20)
[2020-12-21] MEDS ORDERED: Dextrose 50% Abboject 50 ML SYRINGE SLOW IVP PRN (21:20)
[2020-12-21] MEDS ORDERED: Ondansetron PF 4 MG/2 ML Vial IVP PRN (21:20)
[2020-12-21] MEDS ORDERED: Bisacodyl 5 MG TAB PO PRN (21:20)
[2020-12-21] MEDS ORDERED: Dextrose 5% in Water 1,000 ML IV PRN (21:20)
[2020-12-21] MEDS ORDERED: Senokot S 8.6-50 MG TAB PO PRN (21:20)
[2020-12-21] MEDS ORDERED: Melatonin 3 MG TAB PO PRN (21:29)
[2020-12-21] MEDS: Lorazepam 0.5 MG TAB PO PRN (22:31)
[2020-12-21] MEDS ORDERED: Albuterol Sulfate 1.25 MG/3 ML NEB INH PRN (22:39)
[2020-12-21] MEDS ORDERED: Pharmacy to Dose REMDESIVIR IVPB PRN (22:43)
[2020-12-21] MEDS: HumaLOG 300 UNITS/3 ML VIAL SC PRN (23:03)
[2020-12-21 23:41] LABS: ALT (SGPT) 14 U/L (8-55); AST (SGOT) 22 U/L (5-34); Albumin 3.1 g/dL (3.4-4.8); Alkaline Phosphatase 57 U/L (40-110); Anion Gap 17 mmol/L (10-20); BUN (Urea Nitrogen) 37 mg/dL (9.8-20.1); Bilirubin, Total 0.5 mg/dL (0.2-1.2); Calc. Creatinine Clearance 0 mL/min (70-130); Carbon Dioxide 14 mmol/L (23-31); Chloride 102 mmol/L (98-107); Globulin 3.8 g/dL (2.4-3.5); Glucose 424 mg/dL (80-115); Potassium 3.8 mmol/L (3.5-5.1); Protein, Total 6.9 g/dL (5.8-8.1); Sodium 129 mmol/L (136-145)
[2020-12-21 23:44] LABS: Troponin I Less than 0.010 ng/mL (< 0.028)
[2020-12-22] MEDS ORDERED: Chloraseptic Spray 180 ml Bottle PO PRN (01:07)
[2020-12-22] MEDS ORDERED: Enoxaparin Sodium 40 MG/0.4 ML SYRINGE SC SCH (01:30)
[2020-12-22] MEDS: Azithromycin 500 MG in Sodium Chloride 0.9% 250 ML 250 ML IVPB SCH ×2 (03:55→23:00)
[2020-12-22] MEDS: Albuterol 200 PUFF (6.7GM INHALER) INH PRN (04:16)
[2020-12-22] MEDS: cefTRIAXone\\ROCEPHIN 2 GM in Sodium Chloride 0.9% 100 ML IVPB SCH (04:43)
[2020-12-22] MEDS: HumaLOG 300 UNITS/3 ML VIAL SC PRN ×2 (05:17→13:52)
[2020-12-22 06:32] LABS: #Lymphocytes 0.4 thou/uL (1.20-3.40); #Monocytes 0.2 thou/uL (0.11-0.59); #Neutrophils 3.5 thou/uL (1.40-6.50); %Eosinophils 0.1 % (0.0-10.0); %Lymphocytes 8.8 % (21.0-51.0); %Monocytes 5.8 % (0.0-10.0); %Neutrophils 85.3 % (42.0-75.0); Hemoglobin 10.5 g/dL (12.0-16.0); Mean Corpuscular Hemoglobin 32.1 pg (27.0-31.0); Mean Corpuscular Volume 94.6 fL (78.0-98.0); Mean Platelet Volume 7.9 fL (7.4-10.4); Platelet Count 139 thou/uL (130-400); RBC Distribution Width 14.8 % (11.5-14.5); Red Blood Cell (RBC) Count 3.27 mill/uL (4.20-5.40)
[2020-12-22 06:37] LABS: Hemoglobin A1c 8.4 % (4.0-6.0)
[2020-12-22 06:56] LABS: ALT (SGPT) 12 U/L (8-55); AST (SGOT) 19 U/L (5-34); Alkaline Phosphatase 57 U/L (40-110); Anion Gap 13 mmol/L (10-20); BUN (Urea Nitrogen) 36 mg/dL (9.8-20.1); Bilirubin, Total 0.4 mg/dL (0.2-1.2); Calc. Creatinine Clearance 49 mL/min (70-130); Calcium 8.1 mg/dL (7.8-10.44); Carbon Dioxide 19 mmol/L (23-31); Chloride 104 mmol/L (98-107); Globulin 3.8 g/dL (2.4-3.5); Glucose 300 mg/dL (80-115); Potassium 3.9 mmol/L (3.5-5.1); Protein, Total 6.8 g/dL (5.8-8.1); Sodium 132 mmol/L (136-145)
[2020-12-22] MEDS: Enoxaparin Sodium 40 MG/0.4 ML SYRINGE SC SCH (08:01)
[2020-12-22] MEDS ORDERED: Iopamidol-370 76% 500 ML 1 ML ONE (08:53)
[2020-12-22] MEDS ORDERED: REMDESIVIR 200 MG in Sodium Chloride 0.9% 250 ML 210 ML IV SCH (09:00)
[2020-12-22] MEDS: Guaifenesin DM 100-10/5 ML UDCUP PO PRN (20:04)
[2020-12-22] MEDS: Lorazepam 0.5 MG TAB PO PRN (21:23)
[2020-12-23] MEDS: Guaifenesin DM 100-10/5 ML UDCUP PO PRN (00:12)
[2020-12-23] MEDS: cefTRIAXone\\ROCEPHIN 2 GM in Sodium Chloride 0.9% 100 ML IVPB SCH (00:48)
[2020-12-23] MEDS ORDERED: Benzonatate 100 MG CAP PO PRN (02:27)
[2020-12-23 06:54] LABS: #Lymphocytes 0.9 thou/uL (1.20-3.40); #Monocytes 0.4 thou/uL (0.11-0.59); #Neutrophils 5.4 thou/uL (1.40-6.50); %Basophils 0.1 % (0.0-1.0); %Eosinophils 0.4 % (0.0-10.0); %Lymphocytes 13.1 % (21.0-51.0); %Monocytes 5.8 % (0.0-10.0); %Neutrophils 80.6 % (42.0-75.0); Hemoglobin 10.8 g/dL (12.0-16.0); Mean Corpuscular HGB CONC 33.4 g/dL (32.0-36.0); Mean Corpuscular Hemoglobin 31.4 pg (27.0-31.0); Mean Corpuscular Volume 93.8 fL (78.0-98.0); Mean Platelet Volume 7.5 fL (7.4-10.4); Platelet Count 190 thou/uL (130-400); RBC Distribution Width 14.8 % (11.5-14.5); Red Blood Cell (RBC) Count 3.44 mill/uL (4.20-5.40); White Blood Cell (WBC) Count 6.7 thou/uL (4.8-10.8)
[2020-12-23 07:22] LABS: ALT (SGPT) 16 U/L (8-55); AST (SGOT) 35 U/L (5-34); Albumin 3.2 g/dL (3.4-4.8); Alkaline Phosphatase 70 U/L (40-110); Anion Gap 11 mmol/L (10-20); BUN (Urea Nitrogen) 31 mg/dL (9.8-20.1); Bilirubin, Total 0.3 mg/dL (0.2-1.2); Calc. Creatinine Clearance 53 mL/min (70-130); Calcium 8.8 mg/dL (7.8-10.44); Carbon Dioxide 23 mmol/L (23-31); Chloride 107 mmol/L (98-107); Globulin 3.7 g/dL (2.4-3.5); Glucose 147 mg/dL (80-115); Protein, Total 6.9 g/dL (5.8-8.1); Sodium 137 mmol/L (136-145)
[2020-12-23] MEDS ORDERED: REMDESIVIR 100 MG in Sodium Chloride 0.9% 250 ML 230 ML IV SCH (09:00)
[2020-12-23] MEDS: Enoxaparin Sodium 40 MG/0.4 ML SYRINGE SC SCH (11:44)
[2020-12-23] MEDS: Acetaminophen 325 MG TAB PO PRN (17:05)
[2020-12-23] MEDS: Azithromycin 500 MG in Sodium Chloride 0.9% 250 ML 250 ML IVPB SCH (23:37)
[2020-12-24] MEDS: cefTRIAXone\\ROCEPHIN 2 GM in Sodium Chloride 0.9% 100 ML IVPB SCH (00:44)
[2020-12-24 08:51] LABS: #Eosinphils 0.1 thou/uL (0.0-0.7); #Lymphocytes 0.6 thou/uL (1.20-3.40); #Monocytes 0.2 thou/uL (0.11-0.59); #Neutrophils 4.2 thou/uL (1.40-6.50); %Eosinophils 1.5 % (0.0-10.0); %Monocytes 4.7 % (0.0-10.0); %Neutrophils 81.8 % (42.0-75.0); Hemoglobin 11.5 g/dL (12.0-16.0); Mean Corpuscular HGB CONC 33.2 g/dL (32.0-36.0); Mean Corpuscular Hemoglobin 31.6 pg (27.0-31.0); Mean Corpuscular Volume 95.3 fL (78.0-98.0); Mean Platelet Volume 7.6 fL (7.4-10.4); Platelet Count 192 thou/uL (130-400); RBC Distribution Width 14.9 % (11.5-14.5); Red Blood Cell (RBC) Count 3.63 mill/uL (4.20-5.40); White Blood Cell (WBC) Count 5.1 thou/uL (4.8-10.8)
[2020-12-24 09:13] LABS: ALT (SGPT) 14 U/L (8-55); AST (SGOT) 23 U/L (5-34); Albumin 3.2 g/dL (3.4-4.8); Alkaline Phosphatase 71 U/L (40-110); Anion Gap 11 mmol/L (10-20); BUN (Urea Nitrogen) 19 mg/dL (9.8-20.1); Bilirubin, Total 0.4 mg/dL (0.2-1.2); Calc. Creatinine Clearance 65 mL/min (70-130); Calcium 8.8 mg/dL (7.8-10.44); Carbon Dioxide 26 mmol/L (23-31); Chloride 104 mmol/L (98-107); Globulin 4.2 g/dL (2.4-3.5); Glucose 160 mg/dL (80-115); Potassium 3.7 mmol/L (3.5-5.1); Protein, Total 7.4 g/dL (5.8-8.1); Sodium 137 mmol/L (136-145)
[2020-12-24] MEDS: Ferrous Sulfate 325 MG TAB PO SCH (09:32)
[2020-12-24] MEDS: Potassium Chloride 20 MEQ TAB PO SCH (09:32)
[2020-12-24] MEDS: Magnesium Chloride 64 MG TAB PO SCH ×2 (09:32→20:11)
[2020-12-24] MEDS: Enoxaparin Sodium 40 MG/0.4 ML SYRINGE SC SCH (09:33)
[2020-12-24] MEDS: Dexamethasone 4 mg/ml Vial SLOW IVP SCH (09:33)
[2020-12-24] MEDS: HumaLOG 300 UNITS/3 ML VIAL SC PRN ×3 (12:19→20:10)
[2020-12-24] MEDS: Acetaminophen 325 MG TAB PO PRN (20:11)
[2020-12-24] MEDS: Guaifenesin DM 100-10/5 ML UDCUP PO PRN (20:30)
[2020-12-25] MEDS: Azithromycin 500 MG in Sodium Chloride 0.9% 250 ML 250 ML IVPB SCH (00:36)
[2020-12-25] MEDS: cefTRIAXone\\ROCEPHIN 2 GM in Sodium Chloride 0.9% 100 ML IVPB SCH ×2 (01:41→22:39)
[2020-12-25 07:37] LABS: #Eosinphils 0.1 thou/uL (0.0-0.7); #Lymphocytes 0.5 thou/uL (1.20-3.40); #Monocytes 0.2 thou/uL (0.11-0.59); #Neutrophils 4.2 thou/uL (1.40-6.50); %Basophils 0.3 % (0.0-1.0); %Eosinophils 2.2 % (0.0-10.0); %Lymphocytes 10.6 % (21.0-51.0); %Monocytes 4.2 % (0.0-10.0); %Neutrophils 82.8 % (42.0-75.0); Hemoglobin 11.5 g/dL (12.0-16.0); Mean Corpuscular HGB CONC 32.8 g/dL (32.0-36.0); Mean Corpuscular Hemoglobin 31.3 pg (27.0-31.0); Mean Corpuscular Volume 95.6 fL (78.0-98.0); Mean Platelet Volume 7.6 fL (7.4-10.4); Platelet Count 221 thou/uL (130-400); RBC Distribution Width 14.8 % (11.5-14.5); Red Blood Cell (RBC) Count 3.68 mill/uL (4.20-5.40); White Blood Cell (WBC) Count 5.1 thou/uL (4.8-10.8)
[2020-12-25 08:14] LABS: Albumin 3.3 g/dL (3.4-4.8); Anion Gap 13 mmol/L (10-20); BUN (Urea Nitrogen) 20 mg/dL (9.8-20.1); Bilirubin, Total 0.3 mg/dL (0.2-1.2); Calc. Creatinine Clearance 63 mL/min (70-130); Carbon Dioxide 26 mmol/L (23-31); Chloride 104 mmol/L (98-107); Glucose 146 mg/dL (80-115); Potassium 3.8 mmol/L (3.5-5.1); Protein, Total 7.7 g/dL (5.8-8.1); Sodium 139 mmol/L (136-145)
[2020-12-25 08:15] LABS: ALT (SGPT) 12 U/L (8-55); AST (SGOT) 16 U/L (5-34); Alkaline Phosphatase 73 U/L (40-110); Globulin 4.4 g/dL (2.4-3.5)
[2020-12-25] MEDS: Enoxaparin Sodium 40 MG/0.4 ML SYRINGE SC SCH (08:19)
[2020-12-25] MEDS: Ferrous Sulfate 325 MG TAB PO SCH (08:19)
[2020-12-25] MEDS: Dexamethasone 4 mg/ml Vial SLOW IVP SCH (08:20)
[2020-12-25] MEDS: Potassium Chloride 20 MEQ TAB PO SCH (08:20)
[2020-12-25] MEDS: Magnesium Chloride 64 MG TAB PO SCH ×2 (08:22→20:43)
[2020-12-25] MEDS: HumaLOG 300 UNITS/3 ML VIAL SC PRN ×2 (12:35→20:55)
[2020-12-25] MEDS: Azithromycin 250 MG TAB PO SCH (20:43)
[2020-12-25] MEDS: Guaifenesin DM 100-10/5 ML UDCUP PO PRN (20:55)
[2020-12-26 04:24] VITALS: BMI 27.9
[2020-12-26] MEDS: Magnesium Chloride 64 MG TAB PO SCH ×2 (08:07→20:23)
[2020-12-26] MEDS: Ferrous Sulfate 325 MG TAB PO SCH (08:07)
[2020-12-26] MEDS: Potassium Chloride 20 MEQ TAB PO SCH (08:08)
[2020-12-26] MEDS: Dexamethasone 4 mg/ml Vial SLOW IVP SCH (08:08)
[2020-12-26] MEDS: Enoxaparin Sodium 40 MG/0.4 ML SYRINGE SC SCH (12:22)
[2020-12-26] MEDS: HumaLOG 300 UNITS/3 ML VIAL SC PRN (16:27)
[2020-12-26] MEDS: Acetaminophen 325 MG TAB PO PRN (20:22)
[2020-12-26] MEDS: Azithromycin 250 MG TAB PO SCH (20:23)
[2020-12-26] MEDS: cefTRIAXone\\ROCEPHIN 2 GM in Sodium Chloride 0.9% 100 ML IVPB SCH (22:59)
[2020-12-27 06:31] LABS: #Eosinphils 0.2 thou/uL (0.0-0.7); #Monocytes 0.4 thou/uL (0.11-0.59); #Neutrophils 3.6 thou/uL (1.40-6.50); %Basophils 0.3 % (0.0-1.0); %Eosinophils 3.7 % (0.0-10.0); %Lymphocytes 19.5 % (21.0-51.0); %Monocytes 8.1 % (0.0-10.0); %Neutrophils 68.4 % (42.0-75.0); Hemoglobin 12.3 g/dL (12.0-16.0); Mean Corpuscular HGB CONC 33.4 g/dL (32.0-36.0); Mean Corpuscular Hemoglobin 31.3 pg (27.0-31.0); Mean Corpuscular Volume 93.9 fL (78.0-98.0); Mean Platelet Volume 7.6 fL (7.4-10.4); Platelet Count 244 thou/uL (130-400); RBC Distribution Width 14.4 % (11.5-14.5); Red Blood Cell (RBC) Count 3.93 mill/uL (4.20-5.40); White Blood Cell (WBC) Count 5.3 thou/uL (4.8-10.8)
[2020-12-27 06:46] LABS: ALT (SGPT) 14 U/L (8-55); AST (SGOT) 16 U/L (5-34); Albumin 3.3 g/dL (3.4-4.8); Alkaline Phosphatase 83 U/L (40-110); Anion Gap 12 mmol/L (10-20); BUN (Urea Nitrogen) 19 mg/dL (9.8-20.1); Bilirubin, Total 0.4 mg/dL (0.2-1.2); Calc. Creatinine Clearance 57 mL/min (70-130); Calcium 8.6 mg/dL (7.8-10.44); Carbon Dioxide 24 mmol/L (23-31); Chloride 103 mmol/L (98-107); Glucose 146 mg/dL (80-115); Potassium 3.9 mmol/L (3.5-5.1); Protein, Total 7.3 g/dL (5.8-8.1); Sodium 135 mmol/L (136-145)
[2020-12-27] MEDS: Dexamethasone 4 mg/ml Vial SLOW IVP SCH (08:01)
[2020-12-27] MEDS: Ferrous Sulfate 325 MG TAB PO SCH (08:02)
[2020-12-27] MEDS: Potassium Chloride 20 MEQ TAB PO SCH (08:02)
[2020-12-27] MEDS: Enoxaparin Sodium 40 MG/0.4 ML SYRINGE SC SCH (08:03)
[2020-12-27] MEDS: Magnesium Chloride 64 MG TAB PO SCH ×2 (08:03→21:14)
[2020-12-27] MEDS: cefTRIAXone\\ROCEPHIN 2 GM in Sodium Chloride 0.9% 100 ML IVPB SCH (11:00)
[2020-12-27] MEDS: HumaLOG 300 UNITS/3 ML VIAL SC PRN ×3 (12:37→21:15)
[2020-12-27] MEDS: Azithromycin 250 MG TAB PO SCH (21:13)
[2020-12-28] MEDS: Enoxaparin Sodium 40 MG/0.4 ML SYRINGE SC SCH (08:03)
[2020-12-28] MEDS: Magnesium Chloride 64 MG TAB PO SCH ×2 (08:03→20:37)
[2020-12-28] MEDS: Ferrous Sulfate 325 MG TAB PO SCH (08:04)
[2020-12-28] MEDS: Guaifenesin DM 100-10/5 ML UDCUP PO PRN (08:04)
[2020-12-28] MEDS: Potassium Chloride 20 MEQ TAB PO SCH (08:04)
[2020-12-28] MEDS: Dexamethasone 4 mg/ml Vial SLOW IVP SCH (08:04)
[2020-12-28] MEDS: Albuterol 200 PUFF (6.7GM INHALER) INH PRN ×2 (08:19→17:16)
[2020-12-28 08:21] LABS: #Eosinphils 0.3 thou/uL (0.0-0.7); #Lymphocytes 1.2 thou/uL (1.20-3.40); #Monocytes 0.4 thou/uL (0.11-0.59); #Neutrophils 3.7 thou/uL (1.40-6.50); %Basophils 0.1 % (0.0-1.0); %Lymphocytes 21.2 % (21.0-51.0); %Monocytes 7.4 % (0.0-10.0); %Neutrophils 66.4 % (42.0-75.0); Hemoglobin 12.6 g/dL (12.0-16.0); Mean Corpuscular HGB CONC 32.4 g/dL (32.0-36.0); Mean Corpuscular Hemoglobin 30.4 pg (27.0-31.0); Mean Corpuscular Volume 93.8 fL (78.0-98.0); Mean Platelet Volume 7.4 fL (7.4-10.4); Platelet Count 293 thou/uL (130-400); RBC Distribution Width 14.4 % (11.5-14.5); Red Blood Cell (RBC) Count 4.13 mill/uL (4.20-5.40); White Blood Cell (WBC) Count 5.6 thou/uL (4.8-10.8)
[2020-12-28 08:48] LABS: ALT (SGPT) 15 U/L (8-55); AST (SGOT) 21 U/L (5-34); Albumin 3.5 g/dL (3.4-4.8); Alkaline Phosphatase 92 U/L (40-110); Anion Gap 15 mmol/L (10-20); BUN (Urea Nitrogen) 21 mg/dL (9.8-20.1); Bilirubin, Total 0.4 mg/dL (0.2-1.2); CRP (Inflammatory) 3.35 mg/dL (= or < 0.5); Calc. Creatinine Clearance 58 mL/min (70-130); Calcium 8.9 mg/dL (7.8-10.44); Carbon Dioxide 22 mmol/L (23-31); Chloride 103 mmol/L (98-107); Globulin 4.1 g/dL (2.4-3.5); Glucose 144 mg/dL (80-115); Potassium 4.1 mmol/L (3.5-5.1); Protein, Total 7.6 g/dL (5.8-8.1); Sodium 136 mmol/L (136-145)
[2020-12-28] MEDS: HumaLOG 300 UNITS/3 ML VIAL SC PRN ×3 (11:48→20:38)
[2020-12-28] MEDS ORDERED: HumaLOG 300 UNITS/3 ML VIAL SC SCH (17:45)
[2020-12-29] MEDS ORDERED: Non-Formulary Item 1 EACH (Linagliptin [Tradjenta] 5 MG Tablet) PO SCH (09:00)
[2020-12-29] MEDS: Alogliptin 25 MG TAB PO SCH (09:20)
[2020-12-29] MEDS: Potassium Chloride 20 MEQ TAB PO SCH (09:20)
[2020-12-29] MEDS: Enoxaparin Sodium 40 MG/0.4 ML SYRINGE SC SCH (09:20)
[2020-12-29] MEDS: Dexamethasone 4 mg/ml Vial SLOW IVP SCH (09:20)
[2020-12-29] MEDS: Ferrous Sulfate 325 MG TAB PO SCH (09:20)
[2020-12-29] MEDS: Magnesium Chloride 64 MG TAB PO SCH ×2 (09:21→21:50)
[2020-12-29] MEDS: Guaifenesin DM 100-10/5 ML UDCUP PO PRN (09:23)
[2020-12-29] MEDS: HumaLOG 300 UNITS/3 ML VIAL SC PRN ×3 (11:39→20:47)
[2020-12-29] MEDS: Albuterol 200 PUFF (6.7GM INHALER) INH PRN (11:41)
[2020-12-30] MEDS: Potassium Chloride 20 MEQ TAB PO SCH (08:27)
[2020-12-30] MEDS: Ferrous Sulfate 325 MG TAB PO SCH (08:27)
[2020-12-30] MEDS: Enoxaparin Sodium 40 MG/0.4 ML SYRINGE SC SCH (08:28)
[2020-12-30] MEDS: Dexamethasone 4 mg/ml Vial SLOW IVP SCH (08:28)
[2020-12-30] MEDS: Magnesium Chloride 64 MG TAB PO SCH (08:28)
[2020-12-30] MEDS: Alogliptin 25 MG TAB PO SCH (08:30)
[2020-12-30 11:45] VITALS: BP 134/83; TEMP 98.2
[2020-12-30] MEDS: HumaLOG 300 UNITS/3 ML VIAL SC PRN (12:14)
== END 2020-12-30 13:50 | disposition home health service (06) | DRG 177 ==
LOC: T4-B 14:56
PROVIDERS: ADMIT Family Medicine; ATTEND Family Medicine
PROC: 8E0ZXY6 Isolation (ICD-10-PCS; 2020-12-21)
PROC: 3E033XZ Introduction of Vasopressor into Peripheral Vein, Percutaneous Approach (ICD-10-PCS; principal; 2020-12-22)
DX: U07.1 COVID-19 (principal); J96.01 Acute respiratory failure with hypoxia; J12.82 Pneumonia due to coronavirus disease 2019; N17.9 Acute kidney failure, unspecified; I10 Essential (primary) hypertension; E11.65 Type 2 diabetes mellitus with hyperglycemia; Z88.2 Allergy status to sulfonamides; Z79.899 Other long term (current) drug therapy; Z93.3 Colostomy status; Z87.19 Personal history of other diseases of the digestive system
CPT/HCPCS: 36415; 36416; 71046; 71275; 80053; 82728; 83036; 84484; 85025; 85379; 86140; 90471; 90732; G0009; J0456; J0696; J1100; J1650; J1815; J3490; J7050; Q9967

== ENCOUNTER 2021-08-04 10:39 | Outpatient (CLI) | payer MEDICARE | END 2021-08-04 10:40 | disposition home or self-care (01) | LOC: BICMAMMO 10:39 | PROVIDERS: ATTEND Nurse Practitioner | DX: Z12.31 Encounter for screening mammogram for malignant neoplasm of breast (principal) | CPT/HCPCS: 77063; 77067 ==

== ENCOUNTER 2022-06-08 13:07 | Inpatient (IN) | payer MEDICARE ==
[~2022-06-08 13:07] MED LIST: Iopamidol-370 76% 500 ML 1 ML ONE
[2022-06-08] MEDS ORDERED: Dextrose 50% Abboject 50 ML SYRINGE SLOW IVP PRN (19:00)
[2022-06-08] MEDS ORDERED: HumaLOG 300 UNITS/3 ML VIAL SC PRN (19:00)
[2022-06-08] MEDS ORDERED: Dextrose 5% in Water 1,000 ML IV PRN (19:00)
[2022-06-08] MEDS ORDERED: Morphine 4 MG/ML VIAL SLOW IVP PRN (19:10)
[2022-06-08 19:31] VITALS: BMI 29.3
[2022-06-08] MEDS: Metoprolol Tartrate 25 MG TAB PO SCH (20:42)
[2022-06-08] MEDS: Benzonatate 100 MG CAP PO SCH (20:43)
[2022-06-08 20:47] LABS: SARS-CoV-2 NAA Rapid Test Not Detected (NotDetected)
[2022-06-08] MEDS ORDERED: Sertraline 100 MG TAB PO SCH (21:00)
[2022-06-08] MEDS ORDERED: Atorvastatin Calcium 20 MG TAB PO SCH (21:00)
[2022-06-08] MEDS ORDERED: Ondansetron ODT 4 MG TAB PO PRN (22:18)
[2022-06-08] MEDS ORDERED: Ondansetron PF 4 MG/2 ML Vial IVP PRN (22:18)
[2022-06-09] MEDS ORDERED: Ketorolac Tromethamine 30 MG/ML VIAL IVP PRN (03:08)
[2022-06-09 04:53] LABS: #Basophils 0.1 thou/uL (0.0-0.2); #Eosinphils 0.3 thou/uL (0.0-0.7); #Monocytes 0.3 thou/uL (0.11-0.59); #Neutrophils 3.5 thou/uL (1.40-6.50); %Basophils 1.7 % (0.0-1.0); %Eosinophils 5.1 % (0.0-10.0); %Lymphocytes 18.6 % (21.0-51.0); %Monocytes 6.4 % (0.0-10.0); %Neutrophils 68.1 % (42.0-75.0); Hemoglobin 10.7 g/dL (12.0-16.0); Mean Corpuscular HGB CONC 34.1 g/dL (32.0-36.0); Mean Corpuscular Hemoglobin 34.2 pg (27.0-31.0); Mean Platelet Volume 7.8 fL (7.4-10.4); Platelet Count 163 10x3/uL (130-400); RBC Distribution Width 14.2 % (11.5-14.5); Red Blood Cell (RBC) Count 3.14 mill/uL (4.20-5.40); White Blood Cell (WBC) Count 5.1 10x3/uL (4.8-10.8)
[2022-06-09 05:25] LABS: ALT (SGPT) 11 U/L (8-55); AST (SGOT) 21 U/L (5-34); Albumin 3.6 g/dL (3.4-4.8); Alkaline Phosphatase 80 U/L (40-110); Anion Gap 13 mmol/L (10-20); BUN (Urea Nitrogen) 10 mg/dL (9.8-20.1); Bilirubin, Total 1.2 mg/dL (0.2-1.2); Calc. Creatinine Clearance 73 mL/min (70-130); Calcium 8.3 mg/dL (7.8-10.44); Carbon Dioxide 22 mmol/L (23-31); Chloride 102 mmol/L (98-107); Estimated GFR 61; Globulin 3.4 g/dL (2.4-3.5); Glucose 193 mg/dL (83-110); Magnesium 1.5 mg/dL (1.6-2.6); Phosphorus 3.3 mg/dL (2.3-4.7); Potassium 3.8 mmol/L (3.5-5.1); Sodium 133 mmol/L (136-145)
[2022-06-09] MEDS ORDERED: Mometasone 100 MCG/Formoterol 5 MCG 120 PUFF INHALER INH SCH (06:30)
[2022-06-09] MEDS ORDERED: Magnesium 2 GM/50 ML(in water) 4 GM in Premix Bag 1 BAG IVPB SCH (07:15)
[2022-06-09] MEDS ORDERED: Ferrous Sulfate 325 MG TAB PO SCH (08:00)
[2022-06-09] MEDS ORDERED: Alogliptin 25 MG TAB PO SCH (09:00)
[2022-06-09] MEDS ORDERED: Lidocaine 5% Patch TD SCH (09:00)
[2022-06-09] MEDS ORDERED: Oxybutynin ER 5 MG TAB PO SCH (09:00)
[2022-06-09] MEDS ORDERED: Azithromycin 250 MG TAB PO SCH (09:00)
[2022-06-09] MEDS ORDERED: AMOXicillin 250 MG CAP PO SCH (09:00)
[2022-06-09 09:03] VITALS: BP 125/60; TEMP 97.5
[2022-06-09] MEDS: Magnesium 2 GM/50 ML(in water) 2 GM in Premix Bag 1 BAG IVPB SCH ×2 (09:49→10:53)
[2022-06-09] MEDS: Metoprolol Tartrate 25 MG TAB PO SCH (09:51)
[2022-06-09] MEDS: Benzonatate 100 MG CAP PO SCH (09:52)
[2022-06-09] MEDS ORDERED: Magnesium Oxide 400 MG TAB PO SCH (10:15)
[2022-06-09] MEDS ORDERED: Transdermal Patch Removal TOP SCH (21:00)
== END 2022-06-09 12:08 | disposition home or self-care (01) | DRG 542 ==
LOC: 2SW 13:07 → OBSVTOIN 18:56
PROVIDERS: ADMIT Family Medicine; ATTEND Family Medicine
DX: M84.48XA Pathological fracture, other site, initial encounter for fracture (principal); J18.9 Pneumonia, unspecified organism; J90 Pleural effusion, not elsewhere classified; J94.2 Hemothorax; K50.90 Crohn's disease, unspecified, without complications; E11.9 Type 2 diabetes mellitus without complications; I10 Essential (primary) hypertension; E83.42 Hypomagnesemia; R07.9 Chest pain, unspecified; R91.8 Other nonspecific abnormal finding of lung field; K21.9 Gastro-esophageal reflux disease without esophagitis; Z93.2 Ileostomy status; Z98.890 Other specified postprocedural states; Z86.16 Personal history of COVID-19; Z83.6 Family history of other diseases of the respiratory system; Z88.2 Allergy status to sulfonamides; Z79.899 Other long term (current) drug therapy; Z79.51 Long term (current) use of inhaled steroids; Z79.84 Long term (current) use of oral hypoglycemic drugs; Z20.822 Contact with and (suspected) exposure to COVID-19
CPT/HCPCS: 36415; 36416; 71260; 80053; 83735; 84100; 85025; 87633; 87798; J1885; J2270; J2405; J3475; Q9967

== ENCOUNTER 2022-08-25 09:11 | Inpatient (IN) | payer OTHER, MEDICARE ==
[2022-08-25 09:55] LABS: #Eosinphils 0.1 thou/uL (0.0-0.7); #Monocytes 0.3 thou/uL (0.11-0.59); %Basophils 0.4 % (0.0-1.0); %Eosinophils 1.6 % (0.0-10.0); %Lymphocytes 9.6 % (21.0-51.0); %Monocytes 6.6 % (0.0-10.0); Hemoglobin 10.2 g/dL (12.0-16.0); Mean Corpuscular HGB CONC 31.8 g/dL (32.0-36.0); Mean Corpuscular Hemoglobin 31.5 pg (27.0-31.0); Mean Corpuscular Volume 99.1 fl (78.0-98.0); Mean Platelet Volume 9.4 fL (7.4-10.4); Platelet Count 223 10x3/uL (130-400); RBC Distribution Width 14.6 % (11.5-14.5); Red Blood Cell (RBC) Count 3.24 mill/uL (4.20-5.40); White Blood Cell (WBC) Count 4.9 10x3/uL (4.8-10.8)
[2022-08-25 10:17] LABS: ALT (SGPT) 13 U/L (8-55); AST (SGOT) 16 U/L (5-34); Alkaline Phosphatase 109 U/L (40-110); Anion Gap 16 mmol/L (10-20); BUN (Urea Nitrogen) 65 mg/dL (9.8-20.1); Bilirubin, Total 0.7 mg/dL (0.2-1.2); Calc. Creatinine Clearance 0 mL/min (70-130); Calcium 9.4 mg/dL (7.8-10.44); Carbon Dioxide 13 mmol/L (23-31); Chloride 108 mmol/L (98-107); Estimated GFR 20; Globulin 4.6 g/dL (2.4-3.5); Glucose 284 mg/dL (83-110); Potassium 5.5 mmol/L (3.5-5.1); Protein, Total 8.6 g/dL (5.8-8.1); Sodium 131 mmol/L (136-145)
[2022-08-25 10:36] LABS: Bilirubin Negative (Negative); Blood, Urine 1+ (Negative); Clarity Turbid (Clear); Glucose, Urine (Dipstick) Normal (Negative); Ketone, Urine Negative (Negative); Leukocyte 500 Leu/uL (Negative); Nitrite Negative (Negative); Protein, Urine (Dipstick) 50 mg/dL (Neg-Trace); RBC/HPF 0-3 HPF (0-3); Specific Gravity, Urine 1.014 (1.002-1.036); Squamous Epithelial 0-3 HPF (0-3); Urobilinogen Normal mg/dL (Less than 2); WBC/HPF Greater than 50 HPF (0-3); pH, Urine 5.5 (5.0-9.0)
[2022-08-25 10:37] LABS: Bacteria/HPF 1+ HPF (None Seen)
[2022-08-25] MEDS ORDERED: cefTRIAXone (ROCEPHIN) 1 GM VIAL ONE (11:11)
[2022-08-25] MEDS ORDERED: Sodium Chloride 0.9% 100 ML ONE (11:11)
[2022-08-25] MEDS ORDERED: Senokot S 8.6-50 MG TAB PO PRN (11:51)
[2022-08-25] MEDS ORDERED: Ondansetron PF 4 MG/2 ML Vial IVP PRN (11:51)
[2022-08-25] MEDS ORDERED: Calcium Carbonate 500 MG ChewTAB PO PRN (11:51)
[2022-08-25] MEDS ORDERED: Ondansetron ODT 4 MG TAB PO PRN (11:51)
[2022-08-25] MEDS ORDERED: Dextrose 5% in Water 1,000 ML IV PRN (11:53)
[2022-08-25] MEDS ORDERED: Dextrose 50% Abboject 50 ML SYRINGE SLOW IVP PRN (11:53)
[2022-08-25] MEDS ORDERED: HumaLOG 300 UNITS/3 ML VIAL SC PRN ×2 (11:53→17:18)
[2022-08-25] MEDS ORDERED: Morphine 2 MG/ML VIAL SLOW IVP PRN (11:56)
[2022-08-25 13:39] VITALS: BMI 27.7
[2022-08-25] MEDS: Sodium Chloride 0.9% 1,000 ML IV SCH (14:42)
[2022-08-25 19:01] LABS: Anion Gap 12 mmol/L (10-20); BUN (Urea Nitrogen) 58 mg/dL (9.8-20.1); Calc. Creatinine Clearance 36 mL/min (70-130); Calcium 9.2 mg/dL (7.8-10.44); Carbon Dioxide 13 mmol/L (23-31); Chloride 112 mmol/L (98-107); Estimated GFR 29; Glucose 216 mg/dL (83-110); Sodium 132 mmol/L (136-145)
[2022-08-25] MEDS: Metoprolol Tartrate 50 MG TAB PO SCH (20:10)
[2022-08-25] MEDS: Sertraline 100 MG TAB PO SCH (20:10)
[2022-08-25] MEDS: Atorvastatin Calcium 20 MG TAB PO SCH (20:10)
[2022-08-25] MEDS: HYDROcodone/Acetaminophen 5/325 mg Tablet PO PRN (23:41)
[2022-08-26] MEDS: Sodium Chloride 0.9% 1,000 ML IV SCH (03:08)
[2022-08-26 06:10] LABS: #Eosinphils 0.2 thou/uL (0.0-0.7); #Monocytes 0.7 thou/uL (0.11-0.59); #Neutrophils 3.3 thou/uL (1.40-6.50); %Basophils 0.4 % (0.0-1.0); %Eosinophils 2.8 % (0.0-10.0); %Lymphocytes 25.1 % (21.0-51.0); %Monocytes 12.2 % (0.0-10.0); %Neutrophils 58.4 % (42.0-75.0); Hemoglobin 9.9 g/dL (12.0-16.0); Mean Corpuscular HGB CONC 30.5 g/dL (32.0-36.0); Mean Platelet Volume 9.4 fL (7.4-10.4); Platelet Count 220 10x3/uL (130-400); RBC Distribution Width 15.1 % (11.5-14.5); Red Blood Cell (RBC) Count 3.09 mill/uL (4.20-5.40); White Blood Cell (WBC) Count 5.7 10x3/uL (4.8-10.8)
[2022-08-26 06:31] LABS: Mean Corpuscular Volume 105.2 fl (78.0-98.0)
[2022-08-26 06:39] LABS: ALT (SGPT) 11 U/L (8-55); AST (SGOT) 13 U/L (5-34); Albumin 3.5 g/dL (3.4-4.8); Alkaline Phosphatase 99 U/L (40-110); Anion Gap 10 mmol/L (10-20); BUN (Urea Nitrogen) 54 mg/dL (9.8-20.1); Bilirubin, Total 0.6 mg/dL (0.2-1.2); Calc. Creatinine Clearance 41 mL/min (70-130); Calcium 9.4 mg/dL (7.8-10.44); Carbon Dioxide 14 mmol/L (23-31); Chloride 112 mmol/L (98-107); Estimated GFR 33; Glucose 208 mg/dL (83-110); Magnesium 1.4 mg/dL (1.6-2.6); Potassium 4.9 mmol/L (3.5-5.1); Protein, Total 7.5 g/dL (5.8-8.1); Sodium 131 mmol/L (136-145)
[2022-08-26] MEDS ORDERED: Magnesium 2 GM/50 ML(in water) 2 GM in Premix Bag 1 BAG IVPB SCH (07:45)
[2022-08-26] MEDS ORDERED: Non-Formulary Item 1 EACH (Lidocaine 5% Patch [Lidoderm 5% Patch] 1 PATCH Patch) TD SCH (09:00)
[2022-08-26] MEDS: HYDROcodone/Acetaminophen 5/325 mg Tablet PO PRN ×2 (09:33→15:59)
[2022-08-26] MEDS: Metoprolol Tartrate 50 MG TAB PO SCH ×2 (09:33→20:12)
[2022-08-26] MEDS: Lidocaine 4% Patch TD SCH (09:33)
[2022-08-26] MEDS: Alogliptin 6.25 MG TAB PO SCH (09:33)
[2022-08-26] MEDS: cefTRIAXone\\ROCEPHIN 1 GM in Sodium Chloride 0.9% 100 ML IVPB SCH (09:34)
[2022-08-26] MEDS: Sertraline 100 MG TAB PO SCH ×2 (09:34→20:11)
[2022-08-26] MEDS: Oxybutynin ER 5 MG TAB PO SCH (09:34)
[2022-08-26] MEDS: Ferrous Sulfate 325 MG TAB PO SCH (09:34)
[2022-08-26] MEDS: Atorvastatin Calcium 20 MG TAB PO SCH (20:11)
[2022-08-26] MEDS: Transdermal Patch Removal TOP SCH (20:19)
[2022-08-26] MEDS ORDERED: hydrOXYzine 25 MG TAB PO SCH (22:30)
[2022-08-27] MEDS: Oxybutynin ER 5 MG TAB PO SCH (08:34)
[2022-08-27] MEDS: cefTRIAXone\\ROCEPHIN 1 GM in Sodium Chloride 0.9% 100 ML IVPB SCH (08:36)
[2022-08-27] MEDS: HYDROcodone/Acetaminophen 5/325 mg Tablet PO PRN ×2 (08:36→20:32)
[2022-08-27] MEDS: Sertraline 100 MG TAB PO SCH ×2 (08:36→20:33)
[2022-08-27] MEDS: Ferrous Sulfate 325 MG TAB PO SCH (08:36)
[2022-08-27] MEDS: Metoprolol Tartrate 50 MG TAB PO SCH ×2 (08:36→20:33)
[2022-08-27] MEDS: Alogliptin 6.25 MG TAB PO SCH (08:36)
[2022-08-27] MEDS: Lidocaine 4% Patch TD SCH (08:46)
[2022-08-27 09:27] LABS: #Eosinphils 0.1 thou/uL (0.0-0.7); #Monocytes 0.4 thou/uL (0.11-0.59); #Neutrophils 2.8 thou/uL (1.40-6.50); %Basophils 0.5 % (0.0-1.0); %Lymphocytes 20.8 % (21.0-51.0); %Monocytes 9.4 % (0.0-10.0); %Neutrophils 64.7 % (42.0-75.0); Hemoglobin 9.9 g/dL (12.0-16.0); Mean Corpuscular HGB CONC 30.6 g/dL (32.0-36.0); Mean Corpuscular Hemoglobin 31.7 pg (27.0-31.0); Mean Corpuscular Volume 103.8 fl (78.0-98.0); Mean Platelet Volume 9.5 fL (7.4-10.4); Platelet Count 192 10x3/uL (130-400); RBC Distribution Width 14.9 % (11.5-14.5); Red Blood Cell (RBC) Count 3.12 mill/uL (4.20-5.40); White Blood Cell (WBC) Count 4.3 10x3/uL (4.8-10.8)
[2022-08-27 10:04] LABS: Anion Gap 12 mmol/L (10-20); BUN (Urea Nitrogen) 43 mg/dL (9.8-20.1); Calc. Creatinine Clearance 47 mL/min (70-130); Calcium 9.5 mg/dL (7.8-10.44); Carbon Dioxide 12 mmol/L (23-31); Chloride 110 mmol/L (98-107); Estimated GFR 39; Glucose 217 mg/dL (83-110); Potassium 4.3 mmol/L (3.5-5.1); Sodium 130 mmol/L (136-145)
[2022-08-27] MEDS ORDERED: Acetaminophen 500 MG TAB PO PRN (19:48)
[2022-08-27] MEDS: Atorvastatin Calcium 20 MG TAB PO SCH (20:33)
[2022-08-27] MEDS: Melatonin 3 MG TAB PO PRN (20:33)
[2022-08-27] MEDS: Transdermal Patch Removal TOP SCH (20:33)
[2022-08-28] MEDS: HYDROcodone/Acetaminophen 5/325 mg Tablet PO PRN ×3 (02:27→23:52)
[2022-08-28] MEDS: Oxybutynin ER 5 MG TAB PO SCH (08:00)
[2022-08-28] MEDS: Alogliptin 6.25 MG TAB PO SCH (08:00)
[2022-08-28] MEDS: Ferrous Sulfate 325 MG TAB PO SCH (08:00)
[2022-08-28] MEDS: Metoprolol Tartrate 50 MG TAB PO SCH ×2 (08:00→20:47)
[2022-08-28] MEDS: Lidocaine 4% Patch TD SCH (08:01)
[2022-08-28] MEDS: Sertraline 100 MG TAB PO SCH ×2 (08:01→20:47)
[2022-08-28] MEDS: cefTRIAXone\\ROCEPHIN 1 GM in Sodium Chloride 0.9% 100 ML IVPB SCH (08:01)
[2022-08-28] MEDS: Cipro 250 MG TAB PO SCH (20:47)
[2022-08-28] MEDS: Transdermal Patch Removal TOP SCH (20:47)
[2022-08-28] MEDS: Atorvastatin Calcium 20 MG TAB PO SCH (20:47)
[2022-08-28] MEDS: Melatonin 3 MG TAB PO PRN (23:52)
[2022-08-29] MEDS: Cipro 250 MG TAB PO SCH (06:15)
[2022-08-29 06:46] VITALS: TEMP 97.5
[2022-08-29] MEDS: HYDROcodone/Acetaminophen 5/325 mg Tablet PO PRN ×2 (07:05→12:14)
[2022-08-29 07:18] LABS: Anion Gap 11 mmol/L (10-20); BUN (Urea Nitrogen) 30 mg/dL (9.8-20.1); Calc. Creatinine Clearance 52 mL/min (70-130); Calcium 8.8 mg/dL (7.8-10.44); Carbon Dioxide 16 mmol/L (23-31); Chloride 111 mmol/L (98-107); Estimated GFR 45; Glucose 158 mg/dL (83-110); Sodium 134 mmol/L (136-145)
[2022-08-29 07:41] VITALS: BP 95/59
[2022-08-29] MEDS: Sertraline 100 MG TAB PO SCH (08:01)
[2022-08-29] MEDS: Oxybutynin ER 5 MG TAB PO SCH (08:01)
[2022-08-29] MEDS: Ferrous Sulfate 325 MG TAB PO SCH (08:01)
[2022-08-29] MEDS: Metoprolol Tartrate 50 MG TAB PO SCH (08:01)
[2022-08-29] MEDS: Alogliptin 6.25 MG TAB PO SCH (08:01)
[2022-08-29] MEDS: Lidocaine 4% Patch TD SCH (08:02)
== END 2022-08-29 14:59 | disposition swing bed (61) | DRG 683 ==
LOC: SUATTDRO 09:11 → ERS 09:11 → T4-B 13:05
PROVIDERS: ADMIT Internal Medicine; ATTEND Internal Medicine
DX: N17.9 Acute kidney failure, unspecified (principal); E87.1 Hypo-osmolality and hyponatremia; N30.00 Acute cystitis without hematuria; S42.212A Unspecified displaced fracture of surgical neck of left humerus, initial encounter for closed fracture; E86.0 Dehydration; E11.22 Type 2 diabetes mellitus with diabetic chronic kidney disease; I12.9 Hypertensive chronic kidney disease with stage 1 through stage 4 chronic kidney disease, or unspecified chronic kidney disease; K52.9 Noninfective gastroenteritis and colitis, unspecified; N32.81 Overactive bladder; E87.5 Hyperkalemia; F39 Unspecified mood [affective] disorder; N18.9 Chronic kidney disease, unspecified; W01.0XXA Fall on same level from slipping, tripping and stumbling without subsequent striking against object, initial encounter; Y92.009 Unspecified place in unspecified non-institutional (private) residence as the place of occurrence of the external cause; Z88.2 Allergy status to sulfonamides; Z79.899 Other long term (current) drug therapy; Z79.84 Long term (current) use of oral hypoglycemic drugs
CPT/HCPCS: 36415; 36416; 70450; 71045; 72170; 80048; 80053; 81003; 81015; 83735; 83930; 83935; 84300; 85025; 87086; 94760; 96361; 96374; J0696; J1815; J2272; J3475; J3490; J7050

== ENCOUNTER 2022-11-30 09:26 | Outpatient (CLI) | payer MEDICARE | END 2022-11-30 09:27 | disposition home or self-care (01) | LOC: RAD 09:26 | PROVIDERS: ATTEND Internal Medicine Critical Care Medicine | DX: R06.00 Dyspnea, unspecified (principal) | CPT/HCPCS: 71046 ==